=== PATIENT | male | born 1965 | race American Indian/Alaskan Native ===

== ENCOUNTER 2017-02-03 20:42 | Inpatient (IN) | payer OTHER ==
[2017-02-03] MEDS ORDERED: APRESOLINE IV ONE (21:10)
[2017-02-03] MEDS ORDERED: NACL 0.9% 1000 ML 1,000 ML IV ONE (21:10)
[2017-02-03] MEDS ORDERED: ZOFRAN IV ONE (21:10)
[2017-02-03] MEDS ORDERED: MORPHINE IV ONE (21:10)
--- NOTE | 2017-02-03 21:11 | Emergency Department Report ---
ED Abdominal Pain HPI - General Chief Complaint: Abdominal Pain Stated Complaint: ABDOMINAL PAIN, POSS BOWEL OBSTRUCTION Time Seen by Provider: 02/03/17 21:05 Source: EMS, RN notes reviewed Mode of arrival: Stretcher Limitations: No Limitations - History of Present Illness Initial Comments: This is a 51-year-old male. He is previously unknown to me. He does not have a primary care doctor. He denies chronic medical conditions. He denies previous history of abdominal surgeries. Reports a history of known chronic umbilical hernia. Brought to the hospital by EMS for possible bowel obstruction. Patient reports not having had a bowel movement for 4-5 days. Positive nausea and vomiting. Decreased stool, decreased Yoselin, positive increased abdominal girth. No fevers or chills. No chest pain or shortness of breath. No testicular pain. No irritative or obstructive urinary symptoms. Symptoms constant, they have no relieving factors. Of note, at the end of my interview, patient asked to drink. MD Complaint: abdominal pain -: Gradual, days(s) Location: diffuse Severity: mild Severity scale (0 -10): 8 Quality: cramping Improves With: nothing Worsens With: nothing Associated Symptoms: nausea, vomiting, constipation - Related Data Allergies Allergy/AdvReac Type Severity Reaction Status Date / Time peanut AdvReac Severe Swelling Verified 02/04/17 13:31 ED Review of Systems ROS: Stated complaint: ABDOMINAL PAIN, POSS BOWEL OBSTRUCTION Other details as noted in HPI Constitutional: denies: fever Eyes: denies: vision change ENT: denies: epistaxis Respiratory: denies: cough Cardiovascular: denies: chest pain Gastrointestinal: abdominal pain, nausea, vomiting, constipation Genitourinary: denies: urgency, dysuria Musculoskeletal: denies: back pain Neurological: denies: as per HPI, weakness Psychiatric: denies: anxiety ED Past Medical Hx - Past Medical History Previous Medical History?: Yes Hx Hypertension: No Hx CVA: No Hx Heart Attack/AMI: No Hx Congestive Heart Failure: No Hx Diabetes: No Hx Deep Vein Thrombosis: No Hx Pulmonary Embolism: No Hx GERD: No Hx Liver Disease: No Hx Renal Disease: No Hx of Cancer: No Hx Sickle Cell Disease: No Hx Arthritis: No Hx Headaches / Migraines: No Hx Seizures: No Hx Psychiatric Treatment: No Hx Asthma: No Hx COPD: No Hx Tuberculosis: No Hx Dementia: No Hx HIV: No - Surgical History Past Surgical History?: No Hx Coronary Stent: No Hx Open Heart Surgery: No Hx Pacemaker: No Hx Internal Defibrillator: No Hx Cholecystectomy: No Hx Appendectomy: No Hx Breast Surgery: No - Social History Smoking Status: Current Every Day Smoker Substance Use Type: Alcohol ED Physical Exam - General Limitations: No Limitations General appearance: alert, in no apparent distress, obese - Head Head exam: Present: atraumatic, normocephalic - Eye Eye exam: Present: normal appearance, EOMI. Absent: nystagmus - ENT ENT exam: Present: normal exam, normal orophraynx, mucous membranes moist, normal external ear exam - Neck Neck exam: Present: normal inspection, full ROM. Absent: tenderness, meningismus - Respiratory Respiratory exam: Present: normal lung sounds bilaterally. Absent: respiratory distress, wheezes, rales, rhonchi, stridor, prolonged expiratory - Cardiovascular Cardiovascular Exam: Present: regular rate, normal rhythm, normal heart sounds. Absent: bradycardia, tachycardia, irregular rhythm, systolic murmur, diastolic murmur, rubs, gallop - GI/Abdominal GI/Abdominal exam: Present: soft, tenderness (mild diffuse tenderness. No rebound, guarding or peritoneal signs.), normal bowel sounds, hernia (there are 2 small umbilical hernias both of which are reducible. There is a small aspect of umbilical hernia that is leaking serous fluid. Nontender.), other. Absent: distended, guarding, rebound, rigid - Rectal Rectal exam: Present: deferred - Extremities Exam Extremities exam: Present: normal inspection, full ROM, normal capillary refill. Absent: tenderness, pedal edema, joint swelling, calf tenderness - Back Exam Back exam: Present: normal inspection, full ROM. Absent: tenderness, CVA tenderness (R), CVA tenderness (L), muscle spasm, paraspinal tenderness, vertebral tenderness - Neurological Exam Neurological exam: Present: alert, oriented X3, normal gait, other (Extraocular movements intact. Tongue midline. No facial droop. Facial sensation intact to light touch in the V1, V2, V3 distribution bilaterally. 5 and 5 strength in 4 extremities.. Sensation is intact to light touch in 4 extremities.). Absent : motor sensory deficit - Psychiatric Psychiatric exam: Present: normal affect, normal mood - Skin Skin exam: Present: warm, dry, intact, normal color. Absent: rash ED Course Vital Signs 03/20/17 03/20/17 03/21/17 20:55 22:26 00:00 Temperature 98.6 F Respiratory 17 17 2 L Rate Blood Pressure 206/98 Blood Pressure 138/74 [Left] O2 Sat by Pulse 99 99 Oximetry - Reevaluation(s) Reevaluation #1: 02/03/17 21:14 Differential diagnosis: Constipation, obstruction, ileus, hypertension, incidental elevated blood pressure Assessment and plan: 51-year-old male with complaint of abdominal pain, nausea vomiting distention. Afebrile, somewhat hypertensive. Appears quite comfortable. We will obtain basic laboratory studies, CT scan, reassess. Hypertension appreciated, we will treat him with hydralazine. 02/03/17 23:24 Reevaluation #2: 02/03/17 23:24 Blood pressure is improved. CT scan demonstrates high-grade small bowel obstruction, ventral hernia defect containing the cecum and ileocecal junction, with incarceration of the bowel, pneumatosis suggesting possible ischemic injury. Afebrile, lactic acid within normal limits. Patient reports that he is feeling comfortable. Nasogastric tube is ordered. Care is discussed with the general surgeon, Dr. Osorio, who accepts patient to his service. Aortic findings incidental, most likely asymptomatic given clinical picture. 02/03/17 23:25 ED Medical Decision Making - Lab Data Result diagrams: 02/06/17 15:17 02/07/17 15:09 Vital Signs 02/03/17 20:55 Temperature 98.6 F Respiratory 17 Rate Blood Pressure 206/98 O2 Sat by Pulse 99 Oximetry Vital Signs 02/03/17 02/03/17 20:55 22:26 Temperature 98.6 F Respiratory 17 17 Rate Blood Pressure 206/98 Blood Pressure 138/74 [Left] O2 Sat by Pulse 99 99 Oximetry Lab Results 02/03/17 02/03/17 02/03/17 Range/Units 21:14 21:14 21:14 WBC 12.7 H (4.5-11.0) K/mm3 RBC 5.64 H (3.65-5.03) M/mm3 Hgb 17.2 H (11.8-15.2) gm/dl Hct 52.0 H (35.5-45.6) % MCV 92 (84-94) fl MCH 31 (28-32) pg MCHC 33 (32-34) % RDW 12.8 L (13.2-15.2) % Plt Count 185 (140-440) K/mm3 Sodium 138 (137-145) mmol/L Potassium 4.1 (3.6-5.0) mmol/L Chloride 96.7 L (98-107) mmol/L Carbon Dioxide 28 (22-30) mmol/L Anion Gap 17 mmol/L BUN 18 (9-20) mg/dL Creatinine 0.9 (0.8-1.5) mg/dL Estimated GFR > 60 ml/min BUN/Creatinine Ratio 20.00 % Glucose 138 H (75-100) mg/dL Lactic Acid 1.6 (0.7-2.0) mmol/L Calcium 9.3 (8.4-10.2) mg/dL Total Bilirubin 0.9 (0.1-1.2) mg/dL AST 11 (5-40) units/L ALT 13 (7-56) units/L Alkaline Phosphatase 57 (35-129) units/L Total Protein 7.5 (6.3-8.2) g/dL Albumin 3.7 L (3.9-5) g/dL Albumin/Globulin Ratio 1.0 % - Radiology Data Radiology results: report reviewed, image reviewed CT scan demonstrates high-grade small bowel obstruction, aneurysmal dilatation of the abdominal aorta measuring 4.5 cm, incarceration of the bowel and herniation of the cecum. Critical care attestation.: If time is entered above; I have spent that time in minutes in the direct care of this critically ill patient, excluding procedure time. ED Disposition Clinical Impression: SBO (small bowel obstruction) Disposition: OP ADMITTED IP TO THIS HOSP Is pt being admited?: Yes Condition: Good
[2017-02-03 22:03] LABS: Hemoglobin 17.2 gm/dl (11.8-15.2); Mean Corpuscular HGB Conc 33 % (32-34); Mean Corpuscular Hemoglobin 31 pg (28-32); Mean Corpuscular Volume 92 fl (84-94); Platelet Count 185 K/mm3 (140-440); Red Blood Count 5.64 M/mm3 (3.65-5.03); Red Cell Distribution Width 12.8 % (13.2-15.2); White Blood Count 12.7 K/mm3 (4.5-11.0)
[2017-02-03 22:13] LABS: INR 1.15 (0.87-1.13)
[2017-02-03 22:14] LABS: Alanine Aminotransferase 13 units/L (7-56); Albumin 3.7 g/dL (3.9-5); Alkaline Phosphatase 57 units/L (35-129); Anion Gap 17 mmol/L; Bilirubin,Total 0.9 mg/dL (0.1-1.2); Blood Urea Nitrogen 18 mg/dL (9-20); Calcium 9.3 mg/dL (8.4-10.2); Carbon Dioxide 28 mmol/L (22-30); Chloride 96.7 mmol/L (98-107); Glucose 138 mg/dL (75-100); Potassium 4.1 mmol/L (3.6-5.0); Sodium 138 mmol/L (137-145); Total Protein 7.5 g/dL (6.3-8.2)
[2017-02-03 22:39] LABS: Anion Gap 19 mmol/L; BUN/Creatinine Ratio 21.11; Blood Urea Nitrogen 19 mg/dL (9-20); Calcium 9.5 mg/dL (8.4-10.2); Carbon Dioxide 27 mmol/L (22-30); Chloride 98.1 mmol/L (98-107); Glucose 133 mg/dL (75-100); Potassium 4.2 mmol/L (3.6-5.0); Sodium 140 mmol/L (137-145)
[2017-02-03] MEDS ORDERED: NACL ONE (22:53)
--- NOTE | 2017-02-03 23:08 | Cat Scan Report ---
FINAL REPORT PROCEDURE: CT ABDOMEN PELVIS W CON TECHNIQUE: Computerized axial tomography of the abdomen and pelvis was performed after the IV injection of iodinated nonionic contrast. HISTORY: rlq pain, IV and oral contrast COMPARISON: No prior studies are available for comparison. FINDINGS: Visualized lower thorax: No significant abnormality. Liver: Normal size and attenuation. Spleen: Normal size and attenuation. Gallbladder and biliary system: Normal. Pancreas: Normal. Adrenals: Normal. Kidneys: Normal. GI tract: There is a ventral hernia defect containing the cecum and ileal cecal junction. There is incarceration of the bowel at this location and the herniated portion of the cecum demonstrates pneumatosis suggesting possible ischemic injury. There is a high-grade mechanical small bowel obstruction with significant distension of the small bowel. The stomach is likewise distended.. Lymph nodes and mesentery: Normal. Vasculature: There is aneurysmal dilatation of the abdominal aorta measuring up to 4.7 centimeters in diameter and 8.3 centimeters in length. There is calcified and soft plaque. There is no dissection or thrombosis. Visceral branches are patent.. Bladder: Normal. Reproductive organs: Normal. Peritoneum: There is minimal ascites. There is no free air. There is no abscess.. Musculoskeletal structures: No significant abnormality. Other: None. IMPRESSION: There is a ventral hernia defect containing the cecum and ileal cecal junction. There is incarceration of the bowel at this location and the herniated portion of the cecum demonstrates pneumatosis suggesting possible ischemic injury. There is a high-grade mechanical small bowel obstruction with significant distension of the small bowel. There is aneurysmal dilatation of the abdominal aorta measuring up to 4.7 centimeters in diameter and 8.3 centimeters in length. There is calcified and soft plaque. There is no dissection or thrombosis. Visceral branches are patent.. There is minimal ascites. There is no free air. There is no abscess..
[2017-02-03] MEDS ORDERED: ZOSYN/NS 4.5GM/100ML 4.5 GM/100 ML VIAL IV ONE (23:14)
[2017-02-03] MEDS ORDERED: LIDOCAINE VISCOUS 2% PO ONE (23:17)
[2017-02-03] MEDS ORDERED: XYLOCAINE TOPICAL 4% TP ONE (23:17)
[2017-02-03] MEDS ORDERED: NACL 0.9% 1000 ML 1,000 ML IV SCH (23:30)
[2017-02-03] MEDS ORDERED: NACL 0.9% IV SCH (23:45)
[2017-02-04] MEDS ORDERED: ZOSYN/NS 4.5GM/100ML 4.5 GM/100 ML VIAL IV ONE (00:22)
[2017-02-04] MEDS: ZOFRAN IV PRN (01:37)
[2017-02-04] MEDS: MORPHINE IV PRN (01:37)
[2017-02-04] MEDS: FLAGYL 500 MG/100 ML 500 MG/100 ML BAG IV SCH ×4 (01:38→19:15)
--- NOTE | 2017-02-04 08:08 | Admit Criteria Form ---
Admission Criteria Documentation: INTESTINAL OBSTRUCTION Clinical Indications for Admission to Inpatient Care (Place 'X' for any and all applicable criteria): Admission is indicated for ANY ONE of the following (1)(2)(3)(4)(5): [ ]I. Partial bowel obstruction [X]II. Complete bowel obstruction Extended stay beyond goal length of stay may be needed for(1)(4)(12(: [ ]a) Identified etiology (eg, hernia, volvulus, cancer with obstruction) requiring intervention [ ]b) Gallstone ileus [ ]c) Surgical intervention [ ]d) Acute comorbid illness (eg, electrolyte imbalance, hypovolemia, renal failure) The original [employer] content created by [employer] has been revised. The portions of the content which have been revised are identified through the use of italic text or in bold, and [facility] has neither reviewed nor approved the modified material. All other unmodified content is copyright [employer]. Please see references footnoted in the original [employer] edition 2016 Admission Criteria Met: Yes
[2017-02-04] MEDS ORDERED: NACL 0.9% 1000 ML 1,000 ML IV SCH ×2 (09:30→14:00)
[2017-02-04] MEDS ORDERED: NEOSTIGMINE ONE (12:15)
--- NOTE | 2017-02-04 13:01 | Anesthesia Consultation ---
Anesthesia Consult and Med Hx Date of service: 02/04/17 - Airway Anesthetic Teeth Evaluation: Poor ROM Head & Neck: Adequate Mental/Hyoid Distance: Adequate Mallampati Class: Class II Intubation Access Assessment: Probably Good - Pulmonary Exam CTA: Yes - Cardiac Exam Cardiac Exam: RRR - Pre-Operative Health Status ASA Pre-Surgery Classification: ASA2 Proposed Anesthetic Plan: General - Pulmonary Hx Asthma: No COPD: No Hx Pneumonia: No - Cardiovascular System Hx Hypertension: No Hx Heart Attack/AMI: No Hx Pacemaker: No Hx Internal Defibrillator: No - Central Nervous System Hx Seizures: No - Endocrine Hx Renal Disease: No Hx Liver Disease: No - Hematic Hx Sickle Cell Disease: No
--- NOTE | 2017-02-04 13:02 | Anesthesia Day of Surgery ---
Anesthesia Day of Surgery - Day of Surgery Patient Examined: Yes Patient H&P Reviewed: Yes Patient is NPO: Yes
[2017-02-04] MEDS ORDERED: DILAUDID ONE ×3 (13:51→17:15)
[2017-02-04] MEDS ORDERED: DECADRON ONE ×2 (13:51→16:16)
[2017-02-04] MEDS ORDERED: XYLOCAINE MPF 2% ONE (13:51)
[2017-02-04] MEDS ORDERED: DIPRIVAN 10 MG/ML IV ONE (13:51)
[2017-02-04] MEDS ORDERED: ZEMURON IV ONE (13:51)
[2017-02-04] MEDS ORDERED: ZOFRAN ONE (13:51)
[2017-02-04] MEDS ORDERED: DILAUDID IV PRN (13:57)
[2017-02-04] MEDS ORDERED: ZOFRAN IV PRN (13:57)
[2017-02-04] MEDS ORDERED: PEPCID IV NR (14:00)
[2017-02-04] MEDS ORDERED: VERSED ONE ×3 (14:50→18:07)
[2017-02-04] MEDS ORDERED: NACL 0.9% IR ONE (15:50)
[2017-02-04] MEDS ORDERED: NACL 0.9% 1000 ML 1,000 ML ONE ×4 (16:07→16:44)
[2017-02-04] MEDS ORDERED: NORMODYNE IV ONE (16:17)
[2017-02-04] MEDS ORDERED: NEO SYNEPHRINE ONE (16:32)
[2017-02-04] MEDS ORDERED: NACL 0.9% 100 ML ONE (16:32)
[2017-02-04] MEDS ORDERED: ROBINUL ONE ×3 (16:32→16:44)
[2017-02-04] MEDS ORDERED: VERSED IV ONE (18:13)
--- NOTE | 2017-02-04 18:15 | Post Anesthesia Evaluation ---
- Post Anesthesia Evaluation Patient Participated: Yes Airway Patent: Yes Stable Respiratory Function: Yes Nausea/Vomiting: No Temp > 96.8F: Yes Pain Manageable: Yes Adequeate Hydration: Yes Anesthesia Complications: No Block Receding Appropriately: Not Applicable Patient on Ventilator: No
--- NOTE | 2017-02-04 20:58 | Progress Note ---
Objective Vital Signs - 12hr 02/04/17 02/04/17 02/04/17 12:26 13:39 17:45 Temperature 98.9 F 99.2 F 99.3 F Pulse Rate 96 H 78 Pulse Rate [ Right Brachial] Respiratory 20 22 14 Rate Blood Pressure 206/98 154/86 151/88 Blood Pressure [Right Arm] O2 Sat by Pulse 97 94 98 Oximetry 02/04/17 20:19 Temperature 99.0 F Pulse Rate Pulse Rate [ 75 Right Brachial] Respiratory 24 Rate Blood Pressure Blood Pressure 145/81 [Right Arm] O2 Sat by Pulse 94 Oximetry - Labs 02/03/17 21:14 02/03/17 21:14
[2017-02-04] MEDS: ZOSYN/NS 4.5GM/100ML 4.5 GM/100 ML VIAL IV SCH (23:00)
--- NOTE | 2017-02-05 00:58 | Operative Report ---
PREOPERATIVE DIAGNOSIS: Umbilical hernia, incarcerated. POSTOPERATIVE DIAGNOSES: Small bowel segment of strangulation and gangrene, well localized into the area. ANESTHESIA: General. BLOOD LOSS: Minimal. FINDINGS: The patient had a loop of small intestine just proximal to the ileocecal valve by about 25 cm, stuck into the hernial sac. The sac is about 4 x 4 cm and the contents of the sac showed that segment that showed gangrene. There was no leakage or any perforation. I was able to go on both sides in the usual fashion resecting that segment, which was about 50 cm with end-to-end anastomosis using for that purpose the SHAQ 75. Anesthesia was general. Rest of the examination did not reveal anything specific. I was able to introduce #18 NG tube into the gastric pouch where we got a fairly good amount of fluid from the stomach, amounted to about 400 mL. So, the stomach was decompressed as well as the small intestines with use of the pool suction. DESCRIPTION OF PROCEDURE: With the patient in supine position, prepped and draped in usual fashion. I made a midline incision from above the umbilicus where the mass is to below it for a good 10 cm each. Deep subcutaneous tissue all the way down to fascia was incised. I was able to isolate the peritoneum, so the hernia sac was there with its contents of gangrenous loop of small intestine that was barely about 10 cm. I was able to isolate that immediately and transecting it in the usual fashion after decompressing the small intestines in the usual fashion. Then, the anastomosis was performed using the SHAQ-75 for that purpose end-to-end and then I used a TA 60 to close the stump. Then, this was reinforced with interrupted stitches of 3-0 Vicryl. I was well satisfied with good hemostasis, then the abdominal cavity was irrigated thoroughly with normal saline. The NG tube could be felt easily into the gastric pouch attached to suction. I was well satisfied. Then, the wound was closed in 1 layer, used for that purpose #1 Vicryl interruptedly for the fascia through and through. After removing of the skin that shows evidence of an ulcer there. Then, these tissues were reinforced with 3 retention sutures using for that purpose #5 Ethibond with rubber-shod. I was well satisfied. I did close the skin with graham, leaving some spaces and then I was able to introduce ____ with Betadine. Bandages were then applied, then an abdominal binder, we left the Hanna in. The patient was then transferred to the recovery room in good condition. JOB# [id number] NABEEL/GAMAL
[2017-02-05] MEDS: FLAGYL 500 MG/100 ML 500 MG/100 ML BAG IV SCH ×4 (01:25→17:30)
[2017-02-05] MEDS: MORPHINE IV PRN ×4 (02:35→23:44)
[2017-02-05] MEDS: ZOSYN/NS 4.5GM/100ML 4.5 GM/100 ML VIAL IV SCH ×3 (05:40→22:37)
[2017-02-05] MEDS ORDERED: PEPCID IV NR (06:00)
[2017-02-05 07:17] LABS: Anion Gap 18 mmol/L; BUN/Creatinine Ratio 18.88; Blood Urea Nitrogen 17 mg/dL (9-20); Calcium 7.8 mg/dL (8.4-10.2); Carbon Dioxide 24 mmol/L (22-30); Chloride 109.8 mmol/L (98-107); Glucose 151 mg/dL (75-100); Potassium 4.4 mmol/L (3.6-5.0); Sodium 147 mmol/L (137-145)
[2017-02-05 08:37] LABS: Hematocrit 41.7 % (35.5-45.6); Mean Corpuscular HGB Conc 34 % (32-34); Mean Corpuscular Hemoglobin 31 pg (28-32); Mean Corpuscular Volume 92 fl (84-94); Platelet Count 162 K/mm3 (140-440); Red Blood Count 4.54 M/mm3 (3.65-5.03); White Blood Count 6.1 K/mm3 (4.5-11.0)
[2017-02-05 09:21] LABS: Basophils % (Manual) 0 % (0.0-1.8); Blastocytes % (Manual) 0 %; Eosinophils % (Manual) 0 % (0.0-4.3)
[2017-02-05 09:22] LABS: Anisocytosis 1+; Diff Status Complete; Giant Platelets Rare; Platelet Estimate Cons
--- NOTE | 2017-02-05 10:58 | Progress Note ---
Subjective Patient Reports: Positive: no flatus Narrative: Pt puuled NG last nite , talked to him as to the imprtance of NG suction , accepted . will re insert . Objective Vital Signs - 12hr 02/05/17 02/05/17 02/05/17 00:00 04:00 08:00 Temperature 99.1 F 99.3 F 99.4 F Pulse Rate [ 86 73 64 Right Brachial] Respiratory 24 20 18 Rate Blood Pressure 135/76 134/71 147/75 [Right Arm] O2 Sat by Pulse 94 96 97 Oximetry - Labs 02/05/17 07:44 02/05/17 06:27 Diabetes panel 02/05/17 Range/Units 06:27 Sodium 147 H D (137-145) mmol/L Potassium 4.4 (3.6-5.0) mmol/L Chloride 109.8 H (98-107) mmol/L Carbon Dioxide 24 (22-30) mmol/L BUN 17 (9-20) mg/dL Creatinine 0.9 (0.8-1.5) mg/dL Glucose 151 H (75-100) mg/dL Calcium 7.8 L D (8.4-10.2) mg/dL Calcium panel 02/05/17 Range/Units 06:27 Calcium 7.8 L D (8.4-10.2) mg/dL Pituitary panel 02/05/17 Range/Units 06:27 Sodium 147 H D (137-145) mmol/L Potassium 4.4 (3.6-5.0) mmol/L Chloride 109.8 H (98-107) mmol/L Carbon Dioxide 24 (22-30) mmol/L BUN 17 (9-20) mg/dL Creatinine 0.9 (0.8-1.5) mg/dL Glucose 151 H (75-100) mg/dL Calcium 7.8 L D (8.4-10.2) mg/dL Adrenal panel 02/05/17 Range/Units 06:27 Sodium 147 H D (137-145) mmol/L Potassium 4.4 (3.6-5.0) mmol/L Chloride 109.8 H (98-107) mmol/L Carbon Dioxide 24 (22-30) mmol/L BUN 17 (9-20) mg/dL Creatinine 0.9 (0.8-1.5) mg/dL Glucose 151 H (75-100) mg/dL Calcium 7.8 L D (8.4-10.2) mg/dL
[2017-02-05] MEDS ORDERED: XYLOCAINE TOPICAL 4% TP ONE (11:00)
[2017-02-05] MEDS ORDERED: LIDOCAINE VISCOUS 2% PO ONE (13:00)
[2017-02-05] MEDS ORDERED: D5W/0.45% NACL/KCL 20 MEQ 20 MEQ/1,000 ML BAG IV SCH (14:00)
[2017-02-05] MEDS: ZOFRAN IV PRN (23:44)
[2017-02-06] MEDS: FLAGYL 500 MG/100 ML 500 MG/100 ML BAG IV SCH ×2 (01:39→06:16)
[2017-02-06] MEDS: ZOSYN/NS 4.5GM/100ML 4.5 GM/100 ML VIAL IV SCH ×3 (06:17→22:39)
[2017-02-06] MEDS: MORPHINE IV PRN ×3 (10:55→22:39)
--- NOTE | 2017-02-06 15:00 | Progress Note ---
Subjective Patient Reports: Positive: still having pain, no flatus, no bowel movement Narrative: doing OK , abd distended ng in ,1000cc in 8 hours , ill keep NPO . Objective Vital Signs - 12hr 02/06/17 02/06/17 02/06/17 04:35 08:05 12:20 Temperature 98.7 F 97.5 F L 99.4 F Pulse Rate [ 75 80 95 H Right Brachial] Respiratory 20 20 18 Rate Blood Pressure 166/86 162/91 151/88 [Right Arm] O2 Sat by Pulse 97 93 Oximetry - Labs 02/05/17 07:44 02/05/17 06:27
[2017-02-06 15:37] LABS: Hematocrit 44.2 % (35.5-45.6); Hemoglobin 14.3 gm/dl (11.8-15.2); Mean Corpuscular HGB Conc 32 % (32-34); Mean Corpuscular Hemoglobin 30 pg (28-32); Mean Corpuscular Volume 93 fl (84-94); Platelet Count 197 K/mm3 (140-440); Red Blood Count 4.76 M/mm3 (3.65-5.03); White Blood Count 5.3 K/mm3 (4.5-11.0)
[2017-02-06 16:18] LABS: Basophils % (Manual) 0 % (0.0-1.8); Blastocytes % (Manual) 0 %; Eosinophils % (Manual) 0 % (0.0-4.3)
[2017-02-06 16:19] LABS: Anisocytosis 1+; Diff Status Complete; Platelet Estimate Consistent w Auto
[2017-02-06] MEDS: ZOFRAN IV PRN (22:39)
--- NOTE | 2017-02-07 05:10 | XRay Report ---
FINAL REPORT PROCEDURE: XR ABDOMEN 1V AP TECHNIQUE: Abdominal radiograph, single supine AP view. HISTORY: post op COMPARISON: No prior studies are available for comparison. FINDINGS: Bowel gas pattern:There are distended loops of small bowel suggesting an adynamic ileus. There is no bowel wall thickening.. Masses or calcifications:None. Bony structures:No significant abnormality. Other:There is no free air. There is an NG tube in the stomach.. IMPRESSION: There are distended loops of small bowel suggesting an adynamic ileus. There is no bowel wall thickening.. There is no free air. There is an NG tube in the stomach..
[2017-02-07] MEDS: ZOSYN/NS 4.5GM/100ML 4.5 GM/100 ML VIAL IV SCH ×3 (06:04→23:11)
[2017-02-07] MEDS: FLAGYL 500 MG/100 ML 500 MG/100 ML BAG IV SCH (08:06)
[2017-02-07] MEDS ORDERED: MILK OF MAGNESIA PO ONE ×2 (11:16→14:00)
--- NOTE | 2017-02-07 11:21 | Progress Note ---
Subjective Patient Reports: Positive: flatus Narrative: still abd distension , Pt pulled NG out although was warned againt it , will samantha NPO . Objective Vital Signs - 12hr 02/07/17 08:00 Temperature 98.7 F Pulse Rate [ 87 Right Brachial] Respiratory 18 Rate Blood Pressure 149/85 [Right Arm] O2 Sat by Pulse 96 Oximetry - Labs 02/06/17 15:17 02/05/17 06:27
--- NOTE | 2017-02-07 14:01 | Consultation ---
History of Present Illness - Reason for Consult Consult date: 02/07/17 Abdominal Aortic Aneurysm Requesting physician: [facility] - History of Present Illness This patient is a 51-year-old male that was admitted via the emergency room on 02/05/2017 with a 5 day history of abdominal pain with distention. He was evaluated by the general surgeon, and subsequently admitted with a small bowel obstruction. He had a CT scan of the abdomen which revealed a ventral hernia defect containing the cecum and the ileocecal junction. This appeared to be incarcerated. The patient was subsequently taken to the operating room by his surgeon. The CT scan showed a 4.7 cm the abdominal aorta. A vascular surgery consult is requested to further evaluate. Past History Past Medical History: No medical history (patient denies any chronic medical conditions. He denies taking medications at home.) Past Surgical History: No surgical history Social history: other (the patient is currently incarcerated and is reportedly to be released in March) Family history: denies: no significant family history Medications and Allergies Allergies Allergy/AdvReac Type Severity Reaction Status Date / Time peanut AdvReac Severe Swelling Verified 02/04/17 13:31 Active Meds: Active Medications Piperacillin Sod/Tazobactam Sod (Zosyn/Ns 4.5gm/100ml) 4.5 gm in 100 mls @ 200 mls/hr IV Q8HR MCKINLEY PRN Reason: Protocol Last Admin: 02/07/17 06:04 Dose: 200 mls/hr Potassium Chloride/Dextrose/Sod Cl (D5w/0.45% Nacl/Kcl 20 Meq) 20 meq in 1,000 mls @ 125 mls/hr IV DIRECT MCKINLEY Last Admin: 02/05/17 13:54 Dose: 125 mls/hr Magnesium Hydroxide (Milk Of Magnesia) 60 ml PO Q4H ONE Stop: 02/07/17 14:01 Morphine Sulfate (Morphine) 4 mg IV Q4HR PRN PRN Reason: Pain Last Admin: 02/06/17 22:39 Dose: 4 mg Ondansetron HCl (Zofran) 4 mg IV Q6HR PRN PRN Reason: Nausea Last Admin: 02/06/17 22:39 Dose: 4 mg Review of Systems All systems: negative Exam - Constitutional Vitals: Temp Pulse Resp BP Pulse Ox 98.7 F 87 18 149/85 96 02/07/17 08:00 02/07/17 08:00 02/07/17 08:00 02/07/17 08:00 02/07/17 08:00 General appearance: Present: no acute distress - EENT Eyes: Present: EOM intact ENT: hearing intact - Neck Neck: Present: supple - Respiratory Respiratory effort: normal - Extremities Extremities: no ischemia, pulses intact (pedal pulses intact bilaterally), normal temperature - Psychiatric Psychiatric: appropriate mood/affect, intact judgment & insight, cooperative - Neurologic Neurologic: no focal deficits Results - Labs CBC & Chem 7: 02/06/17 15:17 02/05/17 06:27 Labs: Abnormal lab results 02/06/17 Range/Units 15:17 RDW 13.0 L (13.2-15.2) % Monocytes % (Manual) 17.0 H (0.0-7.3) % Lymphocytes # (Manual) 0.9 L (1.2-5.4) K/mm3 Monocytes # (Manual) 0.9 H (0.0-0.8) K/mm3 Assessment and Plan Patient is a 4.7 cm abdominal aortic aneurysm without rupture. It does not appear to be symptomatic, nor does not require surgical intervention at present. He can follow with us as an outpatient for routine monitoring. Patient states that [facility], and I recommended he get a copy of his CT scan and notify his primary care provider of the aneurysm. - Patient Problems (1) Aortic aneurysm without rupture Current Visit: Yes Status: Acute Qualifiers: Aortic location: A (2) SBO (small bowel obstruction) Current Visit: Yes Status: Acute
[2017-02-07 15:39] LABS: BUN/Creatinine Ratio 16.36; Blood Urea Nitrogen 18 mg/dL (9-20); Calcium 8.9 mg/dL (8.4-10.2); Carbon Dioxide 32 mmol/L (22-30); Chloride 107.9 mmol/L (98-107); Glucose 121 mg/dL (75-100); Potassium 3.7 mmol/L (3.6-5.0); Sodium 151 mmol/L (137-145)
[2017-02-07 15:47] LABS: Anion Gap 15 mmol/L
[2017-02-07] MEDS: MORPHINE IV PRN (18:51)
--- NOTE | 2017-02-08 09:53 | XRay Report ---
Flat plate Abdomen: Compared to 02/07/17. History: Distended abdomen. Findings: Multiple distended loops of small bowel are again identified without significant interval change. No definite air is seen in the descending colon and rectum however minimal air is noted in the ascending colon. Impression: No significant interval change.
[2017-02-08 10:48] LABS: Hematocrit 43.8 % (35.5-45.6); Hemoglobin 14.5 gm/dl (11.8-15.2); Mean Corpuscular HGB Conc 33 % (32-34); Mean Corpuscular Hemoglobin 31 pg (28-32); Mean Corpuscular Volume 92 fl (84-94); Platelet Count 237 K/mm3 (140-440); Red Blood Count 4.77 M/mm3 (3.65-5.03); Red Cell Distribution Width 12.9 % (13.2-15.2); White Blood Count 7.8 K/mm3 (4.5-11.0)
[2017-02-08 10:52] LABS: Anion Gap 15 mmol/L; BUN/Creatinine Ratio 27.27; Blood Urea Nitrogen 30 mg/dL (9-20); Calcium 8.9 mg/dL (8.4-10.2); Carbon Dioxide 36 mmol/L (22-30); Chloride 101.6 mmol/L (98-107); Glucose 142 mg/dL (75-100); Potassium 3.7 mmol/L (3.6-5.0); Sodium 149 mmol/L (137-145)
[2017-02-08 11:30] LABS: Anisocytosis 1+; Basophils % (Manual) 0 % (0.0-1.8); Blastocytes % (Manual) 0 %; Diff Status Complete; Eosinophils % (Manual) 0 % (0.0-4.3); Stomatocytes 1+
--- NOTE | 2017-02-08 13:57 | Progress Note ---
Subjective Narrative: Pt pulled NG again , vomited twice tis AM , abd distendd low B sounds .NG reinserted will check placemen . Vascular seen Pt for the AAA Objective Vital Signs - 12hr 02/08/17 07:00 Temperature 98.8 F Pulse Rate [ 76 Right Brachial] Respiratory 18 Rate Blood Pressure 151/96 [Right Arm] O2 Sat by Pulse 94 Oximetry - Labs 02/08/17 09:59 02/08/17 09:59 Diabetes panel 02/07/17 02/08/17 Range/Units 15:09 09:59 Sodium 151 H 149 H (137-145) mmol/L Potassium 3.7 3.7 (3.6-5.0) mmol/L Chloride 107.9 H 101.6 (98-107) mmol/L Carbon Dioxide 32 H D 36 H (22-30) mmol/L BUN 18 30 H (9-20) mg/dL Creatinine 1.1 1.1 (0.8-1.5) mg/dL Glucose 121 H 142 H (75-100) mg/dL Calcium 8.9 8.9 (8.4-10.2) mg/dL Calcium panel 02/07/17 02/08/17 Range/Units 15:09 09:59 Calcium 8.9 8.9 (8.4-10.2) mg/dL Pituitary panel 02/07/17 02/08/17 Range/Units 15:09 09:59 Sodium 151 H 149 H (137-145) mmol/L Potassium 3.7 3.7 (3.6-5.0) mmol/L Chloride 107.9 H 101.6 (98-107) mmol/L Carbon Dioxide 32 H D 36 H (22-30) mmol/L BUN 18 30 H (9-20) mg/dL Creatinine 1.1 1.1 (0.8-1.5) mg/dL Glucose 121 H 142 H (75-100) mg/dL Calcium 8.9 8.9 (8.4-10.2) mg/dL Adrenal panel 02/07/17 02/08/17 Range/Units 15:09 09:59 Sodium 151 H 149 H (137-145) mmol/L Potassium 3.7 3.7 (3.6-5.0) mmol/L Chloride 107.9 H 101.6 (98-107) mmol/L Carbon Dioxide 32 H D 36 H (22-30) mmol/L BUN 18 30 H (9-20) mg/dL Creatinine 1.1 1.1 (0.8-1.5) mg/dL Glucose 121 H 142 H (75-100) mg/dL Calcium 8.9 8.9 (8.4-10.2) mg/dL
[2017-02-08] MEDS ORDERED: D5W/0.45% NACL/KCL 20 MEQ 20 MEQ/1,000 ML BAG IV SCH (14:00)
--- NOTE | 2017-02-08 14:59 | XRay Report ---
FINAL REPORT PROCEDURE: Portable AP abdomen TECHNIQUE: AP supine portable radiograph of the abdomen was obtained at 02/08/2017 17:58 (GMT) . HISTORY: NGT placement/SMALL BOWELL OBSTRUCTION COMPARISON: Prior study 02/07/2017 FINDINGS: NG tube is seen directed into the left side of the stomach. Midline skin graham project over the lower abdomen and pelvis there are multiple gas distended loops of small bowel seen in the mid abdomen and gasless pelvis. The appearance suggest small bowel obstruction. No abnormal masses or calcifications are seen. IMPRESSION: NG tube in good position. Small bowel obstruction. Postsurgical changes are present.
[2017-02-08] MEDS: ZOSYN/NS 4.5GM/100ML 4.5 GM/100 ML VIAL IV SCH ×3 (18:00→22:00)
[2017-02-08] MEDS ORDERED: CLINIMIX 4.25%-5% SOLUTION 2,000 ML IV SCH (20:00)
[2017-02-09] MEDS: ZOSYN/NS 4.5GM/100ML 4.5 GM/100 ML VIAL IV SCH ×3 (07:38→21:19)
--- NOTE | 2017-02-09 13:51 | XRay Report ---
KUB: 02/09/17 09:48:00 CLINICAL: Postop abdominal pain. COMPARISON: 02/08/17 FINDINGS: The proximal small bowel is distended and there is slightly greater distention than on the prior exam. The nasogastric tube tip has advanced and is in the second portion of the duodenum. No definite colon gas. No pneumoperitoneum. Midline lower abdominal skin graham. IMPRESSION: Small bowel ileus versus small bowel obstruction with slight worsening.
[2017-02-09] MEDS ORDERED: TPN ADULT 2,400 ML IV SCH (20:00)
[2017-02-10] MEDS: ZOSYN/NS 4.5GM/100ML 4.5 GM/100 ML VIAL IV SCH ×3 (06:10→21:40)
[2017-02-10 06:40] LABS: Anion Gap 17 mmol/L; Blood Urea Nitrogen 19 mg/dL (9-20); Calcium 8.8 mg/dL (8.4-10.2); Carbon Dioxide 34 mmol/L (22-30); Chloride 100.5 mmol/L (98-107); Glucose 117 mg/dL (75-100); Magnesium 2.7 mg/dL (1.7-2.3); Phosphorous 3.7 mg/dL (2.5-4.5); Potassium 3.2 mmol/L (3.6-5.0); Sodium 148 mmol/L (137-145)
[2017-02-10 06:54] LABS: Triglycerides 206 mg/dL (2-149)
--- NOTE | 2017-02-10 09:09 | XRay Report ---
KUB. Findings: Compared to the study on February 09, there has been no interval change in the small bowel distention. The NG tube is unchanged in position. There is a paucity of small bowel gas. Impression: No interval change in small bowel obstructive pattern.
--- NOTE | 2017-02-10 12:27 | Progress Note ---
Subjective Narrative: Pr said he had a BM , KUB read wuth Dr royal , minimal improvement . indicated to Pt we need to cont same , Objective Vital Signs - 12hr 02/10/17 07:35 Temperature 99.2 F Pulse Rate [ 59 L Right Brachial] Respiratory 18 Rate Blood Pressure 142/79 [Right Arm] O2 Sat by Pulse 99 Oximetry - Labs 02/08/17 09:59 02/10/17 06:04 Diabetes panel 02/10/17 Range/Units 06:04 Sodium 148 H (137-145) mmol/L Potassium 3.2 L (3.6-5.0) mmol/L Chloride 100.5 (98-107) mmol/L Carbon Dioxide 34 H (22-30) mmol/L BUN 19 (9-20) mg/dL Creatinine 1.0 (0.8-1.5) mg/dL Glucose 117 H (75-100) mg/dL Calcium 8.8 (8.4-10.2) mg/dL Triglycerides 206 H (2-149) mg/dL Calcium panel 02/10/17 Range/Units 06:04 Calcium 8.8 (8.4-10.2) mg/dL Phosphorus 3.7 (2.5-4.5) mg/dL Pituitary panel 02/10/17 Range/Units 06:04 Sodium 148 H (137-145) mmol/L Potassium 3.2 L (3.6-5.0) mmol/L Chloride 100.5 (98-107) mmol/L Carbon Dioxide 34 H (22-30) mmol/L BUN 19 (9-20) mg/dL Creatinine 1.0 (0.8-1.5) mg/dL Glucose 117 H (75-100) mg/dL Calcium 8.8 (8.4-10.2) mg/dL Adrenal panel 02/10/17 Range/Units 06:04 Sodium 148 H (137-145) mmol/L Potassium 3.2 L (3.6-5.0) mmol/L Chloride 100.5 (98-107) mmol/L Carbon Dioxide 34 H (22-30) mmol/L BUN 19 (9-20) mg/dL Creatinine 1.0 (0.8-1.5) mg/dL Glucose 117 H (75-100) mg/dL Calcium 8.8 (8.4-10.2) mg/dL
[2017-02-10] MEDS ORDERED: TPN ADULT 2,400 ML IV SCH (20:00)
[2017-02-11] MEDS: ZOSYN/NS 4.5GM/100ML 4.5 GM/100 ML VIAL IV SCH ×3 (06:50→22:30)
[2017-02-11 07:22] LABS: Anion Gap 16 mmol/L; BUN/Creatinine Ratio 13.63; Blood Urea Nitrogen 15 mg/dL (9-20); Calcium 8.8 mg/dL (8.4-10.2); Carbon Dioxide 33 mmol/L (22-30); Chloride 96.4 mmol/L (98-107); Glucose 106 mg/dL (75-100); Magnesium 2.5 mg/dL (1.7-2.3); Phosphorous 4.2 mg/dL (2.5-4.5); Potassium 3.1 mmol/L (3.6-5.0); Sodium 142 mmol/L (137-145)
--- NOTE | 2017-02-11 12:09 | XRay Report ---
SUPINE KUB: History: Abdominal distention, small bowel obstruction. No change is demonstrated since yesterday's exam. The nasogastric tube remains in the same position. Multiple moderately dilated loops of small bowel are again noted. There is trace gas in the colon. Recent surgical changes are suspected. IMPRESSION: No change. There multiple dilated loops of small bowel in the abdomen.
--- NOTE | 2017-02-11 13:18 | Progress Note ---
Subjective Patient Reports: Positive: feels better, flatus Narrative: Pt says he had a BM , passe flatu , kub 10/15 % improvement . Xray seen with DR Sesay suggest SBS with gastrograffin indicated the above to Pt . Objective Vital Signs - 12hr 02/11/17 08:00 Temperature 99.2 F Pulse Rate [ 78 Right Brachial] Respiratory 20 Rate Blood Pressure 133/78 [Right Arm] O2 Sat by Pulse 98 Oximetry - Labs 02/08/17 09:59 02/11/17 06:23 Diabetes panel 02/11/17 Range/Units 06:23 Sodium 142 (137-145) mmol/L Potassium 3.1 L (3.6-5.0) mmol/L Chloride 96.4 L (98-107) mmol/L Carbon Dioxide 33 H (22-30) mmol/L BUN 15 (9-20) mg/dL Creatinine 1.1 (0.8-1.5) mg/dL Glucose 106 H (75-100) mg/dL Calcium 8.8 (8.4-10.2) mg/dL Calcium panel 02/11/17 Range/Units 06:23 Calcium 8.8 (8.4-10.2) mg/dL Phosphorus 4.2 (2.5-4.5) mg/dL Pituitary panel 02/11/17 Range/Units 06:23 Sodium 142 (137-145) mmol/L Potassium 3.1 L (3.6-5.0) mmol/L Chloride 96.4 L (98-107) mmol/L Carbon Dioxide 33 H (22-30) mmol/L BUN 15 (9-20) mg/dL Creatinine 1.1 (0.8-1.5) mg/dL Glucose 106 H (75-100) mg/dL Calcium 8.8 (8.4-10.2) mg/dL Adrenal panel 02/11/17 Range/Units 06:23 Sodium 142 (137-145) mmol/L Potassium 3.1 L (3.6-5.0) mmol/L Chloride 96.4 L (98-107) mmol/L Carbon Dioxide 33 H (22-30) mmol/L BUN 15 (9-20) mg/dL Creatinine 1.1 (0.8-1.5) mg/dL Glucose 106 H (75-100) mg/dL Calcium 8.8 (8.4-10.2) mg/dL
[2017-02-11] MEDS: KCL 10MEQ/100ML 10 MEQ/100 ML BAG IV SCH ×2 (16:54→18:05)
[2017-02-11] MEDS: INTRALIPID 20% 250 ML IV SCH ×2 (20:33→20:51)
[2017-02-11] MEDS: TPN ADULT 2,400 ML IV SCH ×2 (20:52→21:00)
--- NOTE | 2017-02-11 21:15 | Progress Note ---
Subjective Narrative: event note ; i talked to RN .Pt pulled IV , we need to give K IV . RN ,will restart it .SBSeries in AM . Objective Vital Signs - 12hr 02/11/17 15:30 Temperature 98.9 F Pulse Rate [ 76 Right Brachial] Respiratory 20 Rate Blood Pressure 128/78 [Right Arm] - Labs 02/08/17 09:59 02/11/17 06:23 Diabetes panel 02/11/17 Range/Units 06:23 Sodium 142 (137-145) mmol/L Potassium 3.1 L (3.6-5.0) mmol/L Chloride 96.4 L (98-107) mmol/L Carbon Dioxide 33 H (22-30) mmol/L BUN 15 (9-20) mg/dL Creatinine 1.1 (0.8-1.5) mg/dL Glucose 106 H (75-100) mg/dL Calcium 8.8 (8.4-10.2) mg/dL Calcium panel 02/11/17 Range/Units 06:23 Calcium 8.8 (8.4-10.2) mg/dL Phosphorus 4.2 (2.5-4.5) mg/dL Pituitary panel 02/11/17 Range/Units 06:23 Sodium 142 (137-145) mmol/L Potassium 3.1 L (3.6-5.0) mmol/L Chloride 96.4 L (98-107) mmol/L Carbon Dioxide 33 H (22-30) mmol/L BUN 15 (9-20) mg/dL Creatinine 1.1 (0.8-1.5) mg/dL Glucose 106 H (75-100) mg/dL Calcium 8.8 (8.4-10.2) mg/dL Adrenal panel 02/11/17 Range/Units 06:23 Sodium 142 (137-145) mmol/L Potassium 3.1 L (3.6-5.0) mmol/L Chloride 96.4 L (98-107) mmol/L Carbon Dioxide 33 H (22-30) mmol/L BUN 15 (9-20) mg/dL Creatinine 1.1 (0.8-1.5) mg/dL Glucose 106 H (75-100) mg/dL Calcium 8.8 (8.4-10.2) mg/dL
[2017-02-12 06:32] LABS: Anion Gap 19 mmol/L; BUN/Creatinine Ratio 15.45; Blood Urea Nitrogen 17 mg/dL (9-20); Calcium 8.8 mg/dL (8.4-10.2); Carbon Dioxide 30 mmol/L (22-30); Chloride 97.1 mmol/L (98-107); Glucose 101 mg/dL (75-100); Magnesium 2.3 mg/dL (1.7-2.3); Phosphorous 2.9 mg/dL (2.5-4.5); Potassium 3.6 mmol/L (3.6-5.0); Sodium 142 mmol/L (137-145)
[2017-02-12] MEDS: ZOSYN/NS 4.5GM/100ML 4.5 GM/100 ML VIAL IV SCH ×3 (06:32→21:16)
[2017-02-12] MEDS ORDERED: SUBLIMAZE ONE (11:57)
[2017-02-12] MEDS ORDERED: DIPRIVAN 10 MG/ML IV ONE (11:57)
[2017-02-12] MEDS ORDERED: XYLOCAINE MPF 2% ONE (11:58)
--- NOTE | 2017-02-12 13:24 | Fluoroscopy Report ---
Small bowel series: Patient with recent bowel resection. A nasogastric tube is present and there is diffuse dilatation of bowel loops on the noncontrasted film. The patient was given oral contrast. Barium was followed through the small bowel into the rectum. There is diffuse dilatation of small bowel loops. Contrast reached the cecum between 60 and 90 minutes. No transition zone identified. Impressions: Nonobstructive small bowel ileus.
[2017-02-12 16:35] LABS: BUN/Creatinine Ratio 14.37; Calcium 9.8 mg/dL (8.4-10.2); Potassium 3.4 mmol/L (3.6-5.0)
[2017-02-12] MEDS ORDERED: TPN ADULT 2,400 ML IV SCH (20:00)
[2017-02-12] MEDS ORDERED: INTRALIPID 20% 250 ML IV SCH (20:00)
[2017-02-12] MEDS ORDERED: K-DUR PO ONE (21:00)
[2017-02-13 06:48] LABS: Calcium 9.4 mg/dL (8.4-10.2); Chloride 98.9 mmol/L (98-107); Magnesium 2.6 mg/dL (1.7-2.3); Phosphorous 4.3 mg/dL (2.5-4.5)
[2017-02-13] MEDS: ZOSYN/NS 4.5GM/100ML 4.5 GM/100 ML VIAL IV SCH (08:22)
--- NOTE | 2017-02-13 14:00 | XRay Report ---
SUPINE KUB: History: Abdominal distention The nasogastric tube has been repositioned or removed since 02/11/17. Multiple dilated loops of small bowel are again noted in the upper abdomen and not significantly changed. There is normal gas in the colon. The lung bases are not included. IMPRESSION: No change. Persistent small bowel dilatation.
--- NOTE | 2017-02-14 13:03 | XRay Report ---
Abdomen single view: Compared to 02/13/17. History: Small bowel ileus. Findings: Distended loops of small and large bowel. No wall thickening. No radiopaque calculus or abnormal calcification. No significant interval change. Impression: No significant interval change.
[2017-02-14] MEDS ORDERED: REGLAN IV PRN (13:55)
[2017-02-15] MEDS ORDERED: MORPHINE IV PRN (09:00)
[2017-02-16 00:24] VITALS: BP 125/83
--- NOTE | 2017-02-16 07:55 | Progress Note ---
Subjective Patient Reports: Positive: no new complaints, feels better, pain is less, flatus , bowel movement Narrative: doing fine home today , will leave retention sutures BTO in 3 weeks Objective Vital Signs - 12hr 02/15/17 02/15/17 02/16/17 20:00 22:00 00:00 Temperature 99.6 F 97.4 F L Pulse Rate [ 97 H 88 Right Brachial] Respiratory 20 18 20 Rate Blood Pressure 131/79 125/83 [Right Arm] O2 Sat by Pulse 95 97 Oximetry - Labs 02/08/17 09:59 02/13/17 05:04
--- NOTE | 2017-02-17 00:26 | Discharge Summary ---
HOSPITAL COURSE: This man was seen in the Emergency Room. He came from a alf facility, complained of severe pain to the abdomen. To him, the pain has been going on for about 4 to 5 days prior to admission. His KUB showed evidence of small-bowel obstruction with hernia in the umbilical area. 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 Postop, he had problem with ileus and protracted course of functional bowel obstruction. Slowly, he improved. He was on TPN and NG suction. We put NG tube on 3 occasions as well as IV. Anyhow, we kept him for a few more days, and he did progressively well. He was improving. Abdomen was soft. At this point, I saw him. I believe he may go home today and see me in office in 2 weeks. I did leave 3 retention sutures. DIET: Ad aniceto. JOB# [id number] NABEEL/GAMAL
== END 2017-02-16 15:30 | disposition home or self-care (01) | DRG 330 ==
LOC: ED 20:42 → 2B-SURG 23:17
PROVIDERS: ADMIT Surgery; ATTEND Surgery
PROC: 0DTB0ZZ Resection of Ileum, Open Approach (ICD-10-PCS; principal; 2017-02-04)
PROC: 0WJP0ZZ Inspection of Gastrointestinal Tract, Open Approach (ICD-10-PCS; 2017-02-04)
PROC: 0WQF0ZZ Repair Abdominal Wall, Open Approach (ICD-10-PCS; 2017-02-04)
DX: K42.1 Umbilical hernia with gangrene (principal); K56.7 Ileus, unspecified; F17.200 Nicotine dependence, unspecified, uncomplicated; Z91.010 Allergy to peanuts; I71.4 Abdominal aortic aneurysm, without rupture
CPT/HCPCS: 36415; 74000; 74177; 74250; 80048; 80053; 82140; 82962; 83735; 84100; 84478; 85007; 85025; 85027; 85610; 87075; 87076; 87116; 87186; 88302; 88305; 88307; 96361; 96365; 96375; J0360; J1100; J1170; J2250; J2270; J2370; J2405; J2543; J2704; J2710; J3010; J3480; J7030; Q9963; Q9967

== ENCOUNTER 2017-02-22 07:15 | Emergency (ER) | payer OTHER ==
[2017-02-22] MEDS ORDERED: NACL 0.9% IR ONE (10:43)
[2017-02-22] MEDS ORDERED: TRIPLE ANTIBIOTIC TP ONE (10:43)
--- NOTE | 2017-02-22 10:48 | Emergency Department Report ---
- General Chief Complaint: Wound/Laceration Stated Complaint: SURGERY SITE POSS INFECT Time Seen by Provider: 02/22/17 10:07 Source: patient Mode of arrival: Ambulatory Limitations: No Limitations - History of Present Illness Onset/Timin -: days(s) Location: abdomen Place: other (had an umbilical hernia repair) Patient Tetanus UTD: Yes Associated Symptoms: denies: pain, loss of feeling/numbness, suspect foreign body present, unable to move injured part, weakness followed by dizziness, nausea/vomiting, fever Treatments Prior to Arrival: bandage - Related Data Previous Rx's Medication Instructions Recorded Last Taken Type Aspirin [Aspirin TAB] 81 mg PO QDAY #30 tablet 02/21/17 Unknown Rx AtorvaSTATin [Lipitor] 20 mg PO QHS #30 tablet 02/21/17 Unknown Rx Clopidogrel [Plavix] 75 mg PO QDAY #30 tablet 02/21/17 Unknown Rx Metoprolol [Lopressor TAB] 25 mg PO BID #60 tablet 02/21/17 Unknown Rx metroNIDAZOLE [Flagyl TAB] 500 mg PO Q8HR 15 Days 02/21/17 Unknown Rx Sulfamethoxazole/Trimethoprim 1 tab PO BID #20 tab 02/22/17 Unknown Rx [Bactrim 400-80 mg] Allergies Allergy/AdvReac Type Severity Reaction Status Date / Time peanut AdvReac Severe Swelling Verified 02/22/17 07:28 ED Review of Systems ROS: Stated complaint: SURGERY SITE POSS INFECT Other details as noted in HPI Constitutional: denies: chills, fever Eyes: denies: eye pain, eye discharge, vision change ENT: denies: ear pain, throat pain Respiratory: denies: cough, shortness of breath, wheezing Cardiovascular: denies: chest pain, palpitations Endocrine: no symptoms reported Gastrointestinal: denies: abdominal pain, nausea, diarrhea Genitourinary: denies: urgency, dysuria Musculoskeletal: denies: back pain, joint swelling, arthralgia Skin: denies: rash, lesions Neurological: denies: headache, weakness, paresthesias Psychiatric: denies: anxiety, depression Hematological/Lymphatic: denies: easy bleeding, easy bruising ED Past Medical Hx - Past Medical History Hx Hypertension: No Hx CVA: No Hx Heart Attack/AMI: No Hx Congestive Heart Failure: No Hx Diabetes: No Hx Deep Vein Thrombosis: No Hx Pulmonary Embolism: No Hx GERD: No Hx Liver Disease: No Hx Renal Disease: No Hx Sickle Cell Disease: No Hx Arthritis: Yes Hx Headaches / Migraines: No Hx Seizures: No Hx Psychiatric Treatment: Yes (depression) Hx Asthma: No Hx COPD: No Hx Tuberculosis: No Hx Dementia: No Hx HIV: No Additional medical history: high cholestrol. sleep apnea - cpap - Surgical History Hx Coronary Stent: No Hx Open Heart Surgery: No Hx Pacemaker: No Hx Internal Defibrillator: No Hx Cholecystectomy: No Hx Appendectomy: No Hx Breast Surgery: No Additional Surgical History: hernia repair. bowel obstruction - Social History Smoking Status: Current Every Day Smoker Substance Use Type: Alcohol, Prescribed - Medications Home Medications: Home Medications Medication Instructions Recorded Confirmed Last Taken Type Aspirin [Aspirin TAB] 81 mg PO QDAY #30 tablet 02/21/17 Unknown Rx AtorvaSTATin [Lipitor] 20 mg PO QHS #30 tablet 02/21/17 Unknown Rx Clopidogrel [Plavix] 75 mg PO QDAY #30 tablet 02/21/17 Unknown Rx Metoprolol [Lopressor TAB] 25 mg PO BID #60 tablet 02/21/17 Unknown Rx metroNIDAZOLE [Flagyl TAB] 500 mg PO Q8HR 15 Days 02/21/17 Unknown Rx Sulfamethoxazole/Trimethoprim 1 tab PO BID #20 tab 02/22/17 Unknown Rx [Bactrim 400-80 mg] ED Physical Exam - General Limitations: No Limitations General appearance: alert, in no apparent distress - Head Head exam: Present: atraumatic, normocephalic - Eye Eye exam: Present: normal appearance - ENT ENT exam: Present: mucous membranes moist - Neck Neck exam: Present: normal inspection - Respiratory Respiratory exam: Present: normal lung sounds bilaterally. Absent: respiratory distress - Cardiovascular Cardiovascular Exam: Present: regular rate, normal rhythm. Absent: systolic murmur, diastolic murmur, rubs, gallop - GI/Abdominal GI/Abdominal exam: Present: soft, normal bowel sounds - Rectal Rectal exam: Present: deferred - Extremities Exam Extremities exam: Present: normal inspection - Back Exam Back exam: Present: normal inspection - Neurological Exam Neurological exam: Present: alert, oriented X3 - Psychiatric Psychiatric exam: Present: normal affect, normal mood - Skin Skin exam: Present: warm, dry, intact, normal color, other (mdline vertical incision with steristrips in place and 3 pieces of rubber placed to keep wound from opening, no odor, non tender , no surrounding erythema). Absent: rash ED Course Vital Signs 02/22/17 02/22/17 07:29 12:56 Temperature 97.7 F Pulse Rate 70 76 Respiratory 18 16 Rate Blood Pressure 152/75 Blood Pressure 148/79 [Left] O2 Sat by Pulse 99 98 Oximetry ED Medical Decision Making - Medical Decision Making patient doing well, incision does not look infected, non tender no erythema, i removed the steri strips and cleaned the wound and gave her abx iv , will place him on outpatient abx and has appointment with roxi in 5 days Critical care attestation.: If time is entered above; I have spent that time in minutes in the direct care of this critically ill patient, excluding procedure time. ED Disposition Clinical Impression: Wound dehiscence, surgical Disposition: DISCHARGED TO HOME OR SELFCARE Is pt being admited?: No Does the pt Need Aspirin: No Condition: Good Instructions: Surgical Site Infections (ED), Wound Healing and Your Diet (ED) Prescriptions: Sulfamethoxazole/Trimethoprim [Bactrim 400-80 mg] 1 tab PO BID #20 tab Referrals: PRIMARY CAREMD [Primary Care Provider] - 3-5 Days Time of Disposition: 13:21
[2017-02-22] MEDS ORDERED: WATER FOR INJ (PF) 10 ML ONE ×2 (11:33→12:26)
[2017-02-22] MEDS: ANCEF IM ONE ×2 (11:43→13:13)
[2017-02-22] MEDS ORDERED: NACL 0.9% 100 ML ONE (12:03)
[2017-02-22] MEDS ORDERED: ANCEF ONE (12:51)
[2017-02-22 13:01] VITALS: BP 148/79
[2017-02-22] MEDS ORDERED: FLAGYL PO SCH (14:00)
[2017-02-22] MEDS ORDERED: LOPRESSOR PO SCH (22:00)
[2017-02-23] MEDS ORDERED: PLAVIX PO SCH (10:00)
[2017-02-23] MEDS ORDERED: ASPIRIN PO SCH (10:00)
== END 2017-02-22 14:34 | disposition home or self-care (01) ==
LOC: ED 07:15
DX: T81.30XA Disruption of wound, unspecified, initial encounter (principal); F32.9 Major depressive disorder, single episode, unspecified; M19.90 Unspecified osteoarthritis, unspecified site; E78.00 Pure hypercholesterolemia, unspecified; F17.200 Nicotine dependence, unspecified, uncomplicated; Z79.82 Long term (current) use of aspirin; Z91.010 Allergy to peanuts
CPT/HCPCS: 96372; 99282; J0690; A6250; A9270-GY

== ENCOUNTER 2017-03-22 03:06 | Inpatient (IN) | payer OTHER ==
[2017-03-22 03:48] LABS: Hematocrit 36.6 % (35.5-45.6); Hemoglobin 12.2 gm/dl (11.8-15.2); Mean Corpuscular HGB Conc 33 % (32-34); Mean Corpuscular Hemoglobin 31 pg (28-32); Mean Corpuscular Volume 93 fl (84-94); Platelet Count 213 K/mm3 (140-440); Red Blood Count 3.94 M/mm3 (3.65-5.03); Red Cell Distribution Width 14.9 % (13.2-15.2); White Blood Count 4.4 K/mm3 (4.5-11.0)
[2017-03-22 03:58] LABS: INR 1.01 (0.87-1.13)
[2017-03-22 03:59] LABS: Partial Thromboplastin Time 29.9 Sec. (24.2-36.6)
[2017-03-22 04:02] LABS: Creatine Kinase MB 1.6 ng/mL (0.0-4.0)
[2017-03-22 04:06] LABS: Anion Gap 19 mmol/L; BUN/Creatinine Ratio 6.66; Blood Urea Nitrogen 6 mg/dL (9-20); Calcium 8.3 mg/dL (8.4-10.2); Carbon Dioxide 23 mmol/L (22-30); Chloride 98.6 mmol/L (98-107); Creatine Kinase 82 units/L (55-170); Glucose 112 mg/dL (75-100); Potassium 3.4 mmol/L (3.6-5.0); Sodium 137 mmol/L (137-145)
[2017-03-22 05:01] LABS: Basophils % (Manual) 0 % (0.0-1.8); Blastocytes % (Manual) 0 %; Diff Status Complete; Eosinophils % (Manual) 0 % (0.0-4.3); RBC Morphology Normal
[2017-03-22] MEDS ORDERED: ALUM-MAG HYDROX-SIMETH 200-200-20MG/5ML PO ONE (10:22)
[2017-03-22] MEDS ORDERED: LIDOCAINE VISCOUS 2% PO ONE (10:22)
[2017-03-22] MEDS ORDERED: K-DUR PO ONE (11:18)
--- NOTE | 2017-03-22 11:28 | Emergency Department Report ---
ED Chest Pain HPI - General Chief Complaint: Chest Pain Stated Complaint: CHEST PAIN Time Seen by Provider: 03/22/17 10:11 Source: patient, old records reviewed (02/2017 for NSTEMI, Cardiac cath: nonobstructive cad, no intervention indcated, medical management recommended, Echo EF 50-55%, impared relaxation) Mode of arrival: Ambulatory Limitations: No Limitations - History of Present Illness Initial Comments: 51-year-old male with a past medical history hyperlipidemia, tobacco use, and possible non-ST elevation last month presents to the hospital complains of chest pain. Because of burning midsternal chest pain that is been constant since last night. Symptoms started while sleeping and woke him up. No aggravating or alleviating factors reported. One episode of diaphoresis. Denies nausea, vomiting, shortness of breath, calf tenderness, unilateral leg edema. Patient was admitted last month February 19 until February 21 for chest pain which he states is similar to this chest pain today. Patient had elevated troponins and was diagnosed with non-ST elevation NC. Cardiac cath revealed nonobstructive CAD. Echo: EF of 55% with impaired relaxation. Patient was discharged to continue beta suma, aspirin, statin, and Plavix. Patient did not fill these medications upon discharge since [facility] He needs paperwork regarding his recent discharge another to get that medication filled. He does not even take aspirin over-the- counter. Severity scale (0 -10): 4 - Related Data Previous Rx's Medication Instructions Recorded Last Taken Type Aspirin [Aspirin TAB] 81 mg PO QDAY #30 tablet 02/21/17 Unknown Rx AtorvaSTATin [Lipitor] 20 mg PO QHS #30 tablet 02/21/17 Unknown Rx Clopidogrel [Plavix] 75 mg PO QDAY #30 tablet 02/21/17 Unknown Rx Metoprolol [Lopressor TAB] 25 mg PO BID #60 tablet 02/21/17 Unknown Rx Allergies Allergy/AdvReac Type Severity Reaction Status Date / Time peanut AdvReac Severe Swelling Verified 02/22/17 07:28 BENSON score - Benson Score Age > 65: (0) No Aspirin use within the Past 7 Days: (0) No 3 or more CAD Risk Factors: (0) No 2 or more Angina events in past 24 hrs: (0) No Known CAD with more than 50% Stenosis: (0) No Elevated Cardiac Markers: (0) No ST Deviation Greater than 0.5mm: (0) No BENSON Score: 0 ED Review of Systems ROS: Stated complaint: CHEST PAIN Other details as noted in HPI Comment: All other systems reviewed and negative Other: Constitutional: No fevers chills Eyes: No eye pain visual changes ENT: No ear pain or throat pain Neck: Denies pain Respiratory: Denies cough wheezing shortness of breath Cardiovascular: Denies palpitations, syncope GI: Denies abdominal pain, nausea, vomiting, diarrhea : Denies dysuria Musculoskeletal: Denies back pain Skin: Denies rash, lesions, erythema Neurologic: Denies headache, numbness, weakness Psychiatric: Denies suicidal ideation, hallucinations ED Past Medical Hx - Past Medical History Previous Medical History?: Yes Hx Hypertension: No Hx CVA: No Hx Heart Attack/AMI: No Hx Congestive Heart Failure: No Hx Diabetes: No Hx Deep Vein Thrombosis: No Hx Pulmonary Embolism: No Hx GERD: No Hx Liver Disease: No Hx Renal Disease: No Hx Sickle Cell Disease: No Hx Arthritis: Yes Hx Headaches / Migraines: No Hx Seizures: No Hx Psychiatric Treatment: Yes (depression) Hx Asthma: No Hx COPD: No Hx Tuberculosis: No Hx Dementia: No Hx HIV: No Additional medical history: high cholestrol. sleep apnea - cpap - Surgical History Past Surgical History?: Yes Hx Coronary Stent: No Hx Open Heart Surgery: No Hx Pacemaker: No Hx Internal Defibrillator: No Hx Cholecystectomy: No Hx Appendectomy: No Hx Breast Surgery: No Additional Surgical History: hernia repair. bowel obstruction (status post bowel resection for gangrene on 02/04/[address] Osorio) - Social History Smoking Status: Current Every Day Smoker (one half pack per day 30 years) Substance Use Type: Alcohol (3 beers a day) - Medications Home Medications: Home Medications Medication Instructions Recorded Confirmed Last Taken Type Aspirin [Aspirin TAB] 81 mg PO QDAY #30 tablet 02/21/17 Unknown Rx AtorvaSTATin [Lipitor] 20 mg PO QHS #30 tablet 02/21/17 Unknown Rx Clopidogrel [Plavix] 75 mg PO QDAY #30 tablet 02/21/17 Unknown Rx Metoprolol [Lopressor TAB] 25 mg PO BID #60 tablet 02/21/17 Unknown Rx ED Physical Exam - General Limitations: No Limitations - Other Other exam information: General: No limitations, patient is alert in no acute distress Head exam: Atraumatic, normocephalic Eyes exam: Normal appearance, pupils equal reactive to light, extraocular movements intact ENT: Moist mucous membrane, normal oropharynx Neck exam: Normal inspection, full range of motion, no meningismus nontender Respiratory exam: Clear to auscultation bilateral, no wheezes, rales, crackles, chest wall nontender Cardiovascular: Normal rate and rhythm, normal heart sounds Abdomen: Soft, nondistended, and nontender, with normal bowel sounds, no rebound, or guarding Extremity: Full range of motion normal inspection no deformity, no calf tenderness, or edema Back: Normal Inspection, full range of motion, no tenderness Neurologic: Alert, oriented x3, cranial nerves intact, no motor or sensory deficit Psychiatric: normal affect, normal mood Skin: Warm, dry, intact ED Course Vital Signs 03/22/17 03/22/17 03/22/17 03:10 08:22 08:30 Temperature 98.2 F Pulse Rate 61 Respiratory 18 Rate Blood Pressure 162/85 Blood Pressure 176/99 [Right] O2 Sat by Pulse 100 100 100 Oximetry 03/22/17 03/22/17 03/22/17 08:40 08:50 09:00 Temperature Pulse Rate Respiratory Rate Blood Pressure 162/85 162/85 140/76 Blood Pressure [Right] O2 Sat by Pulse 100 100 100 Oximetry 03/22/17 03/22/17 03/22/17 09:10 09:20 09:30 Temperature Pulse Rate Respiratory Rate Blood Pressure 140/76 140/76 140/76 Blood Pressure [Right] O2 Sat by Pulse 98 98 99 Oximetry 03/22/17 03/22/17 03/22/17 09:40 09:50 10:00 Temperature Pulse Rate Respiratory Rate Blood Pressure 136/69 136/69 136/69 Blood Pressure [Right] O2 Sat by Pulse 100 100 98 Oximetry 03/22/17 03/22/17 03/22/17 10:11 10:21 10:30 Temperature Pulse Rate Respiratory Rate Blood Pressure 138/74 147/82 Blood Pressure [Right] O2 Sat by Pulse 99 97 100 Oximetry 03/22/17 03/22/17 03/22/17 10:41 10:51 11:01 Temperature Pulse Rate Respiratory Rate Blood Pressure 147/82 147/82 161/87 Blood Pressure [Right] O2 Sat by Pulse 100 99 100 Oximetry - Reevaluation(s) Reevaluation #1: 03/22/17 11:21 pt received Maalox and viscous lidocaine with some improvement in pain. - Consultations Consultation #1: 03/22/17 11:54 DR jeff (cardiology [facility]) in ED to evaluate pt. Pt will be admitted to be observed ED Medical Decision Making - Lab Data Result diagrams: 03/22/17 03:25 03/22/17 03:25 Lab Results 03/22/17 03/22/17 03/22/17 Range/Units 03:25 03:25 03:25 WBC 4.4 L (4.5-11.0) K/mm3 RBC 3.94 (3.65-5.03) M/mm3 Hgb 12.2 (11.8-15.2) gm/dl Hct 36.6 (35.5-45.6) % MCV 93 (84-94) fl MCH 31 (28-32) pg MCHC 33 (32-34) % RDW 14.9 (13.2-15.2) % Plt Count 213 (140-440) K/mm3 [place] % (Auto) Tattoo Designer Add Manual Diff Complete Total Counted 100 Seg Neuts % (Manual) 59.0 (40.0-70.0) % Band Neutrophils % 0 % Lymphocytes % (Manual) 27.0 (13.4-35.0) % Reactive Lymphs % (Man) 1.0 % Monocytes % (Manual) 13.0 H (0.0-7.3) % Eosinophils % (Manual) 0 (0.0-4.3) % Basophils % (Manual) 0 (0.0-1.8) % Metamyelocytes % 0 % Myelocytes % 0 % Promyelocytes % 0 % Blast Cells % 0 % Nucleated RBC % Not Reportable Seg Neutrophils # Man 2.6 (1.8-7.7) K/mm3 Band Neutrophils # 0.0 K/mm3 Lymphocytes # (Manual) 1.2 (1.2-5.4) K/mm3 Abs React Lymphs (Man) 0.0 K/mm3 Monocytes # (Manual) 0.6 (0.0-0.8) K/mm3 Eosinophils # (Manual) 0.0 (0.0-0.4) K/mm3 Basophils # (Manual) 0.0 (0.0-0.1) K/mm3 Metamyelocytes # 0.0 K/mm3 Myelocytes # 0.0 K/mm3 Promyelocytes # 0.0 K/mm3 Blast Cells # 0.0 K/mm3 WBC Morphology Not Reportable Hypersegmented Neuts Not Reportable Hyposegmented Neuts Not Reportable Hypogranular Neuts Not Reportable Smudge Cells Not Reportable Toxic Granulation Not Reportable Toxic Vacuolation Not Reportable Dohle Bodies Not Reportable Pelger-Huet Anomaly Not Reportable Zainab Rods Not Reportable Platelet Estimate Appears normal Clumped Platelets Not Reportable Plt Clumps, EDTA Not Reportable Large Platelets Not Reportable Giant Platelets Not Reportable Platelet Satelliting Not Reportable Plt Morphology Comment Not Reportable RBC Morphology Normal Dimorphic RBCs Not Reportable Polychromasia Not Reportable Hypochromasia Not Reportable Poikilocytosis Not Reportable Anisocytosis Not Reportable Microcytosis Not Reportable Macrocytosis Not Reportable Spherocytes Not Reportable Pappenheimer Bodies Not Reportable Sickle Cells Not Reportable Target Cells Not Reportable Tear Drop Cells Not Reportable Ovalocytes Not Reportable Helmet Cells Not Reportable [place] Bodies Not Reportable [place] Rings Not Reportable [place] Cells Not Reportable Bite Cells Not Reportable Crenated Cell Not Reportable Elliptocytes Not Reportable Acanthocytes (Spur) Not Reportable Rouleaux Not Reportable Hemoglobin C Crystals Not Reportable Schistocytes Not Reportable Malaria parasites Not Reportable Keven Bodies Not Reportable Hem Pathologist Commnt No PT 13.2 (12.2-14.9) Sec. INR 1.01 (0.87-1.13) APTT 29.9 (24.2-36.6) Sec. Sodium 137 (137-145) mmol/L Potassium 3.4 L (3.6-5.0) mmol/L Chloride 98.6 (98-107) mmol/L Carbon Dioxide 23 (22-30) mmol/L Anion Gap 19 mmol/L BUN 6 L (9-20) mg/dL Creatinine 0.9 (0.8-1.5) mg/dL Estimated GFR > 60 ml/min BUN/Creatinine Ratio 6.66 % Glucose 112 H (75-100) mg/dL Calcium 8.3 L (8.4-10.2) mg/dL Total Creatine Kinase 82 (55-170) units/L CK-MB (CK-2) 1.6 (0.0-4.0) ng/mL CK-MB (CK-2) Rel Index 1.9 (0-4) Troponin T < 0.010 (0.00-0.029) ng/mL Triglycerides (2-149) mg/dL Cholesterol (50-199) mg/dL LDL Cholesterol Direct (50-130) mg/dL HDL Cholesterol (40-59) mg/dL Cholesterol/HDL Ratio % 03/22/17 03/22/17 Range/Units 06:13 09:36 WBC (4.5-11.0) K/mm3 RBC (3.65-5.03) M/mm3 Hgb (11.8-15.2) gm/dl Hct (35.5-45.6) % MCV (84-94) fl MCH (28-32) pg MCHC (32-34) % RDW (13.2-15.2) % Plt Count (140-440) K/mm3 [place] % (Auto) Add Manual Diff Total Counted Seg Neuts % (Manual) (40.0-70.0) % Band Neutrophils % % Lymphocytes % (Manual) (13.4-35.0) % Reactive Lymphs % (Man) % Monocytes % (Manual) (0.0-7.3) % Eosinophils % (Manual) (0.0-4.3) % Basophils % (Manual) (0.0-1.8) % Metamyelocytes % % Myelocytes % % Promyelocytes % % Blast Cells % % Nucleated RBC % Seg Neutrophils # Man (1.8-7.7) K/mm3 Band Neutrophils # K/mm3 Lymphocytes # (Manual) (1.2-5.4) K/mm3 Abs React Lymphs (Man) K/mm3 Monocytes # (Manual) (0.0-0.8) K/mm3 Eosinophils # (Manual) (0.0-0.4) K/mm3 Basophils # (Manual) (0.0-0.1) K/mm3 Metamyelocytes # K/mm3 Myelocytes # K/mm3 Promyelocytes # K/mm3 Blast Cells # K/mm3 WBC Morphology Hypersegmented Neuts Hyposegmented Neuts Hypogranular Neuts Smudge Cells Toxic Granulation Toxic Vacuolation Dohle Bodies Pelger-Huet Anomaly Zainab Rods Platelet Estimate Clumped Platelets Plt Clumps, EDTA Large Platelets Giant Platelets Platelet Satelliting Plt Morphology Comment RBC Morphology Dimorphic RBCs Polychromasia Hypochromasia Poikilocytosis Anisocytosis Microcytosis Macrocytosis Spherocytes Pappenheimer Bodies Sickle Cells Target Cells Tear Drop Cells Ovalocytes Helmet Cells [place] Bodies [place] Rings [place] Cells Bite Cells Crenated Cell Elliptocytes Acanthocytes (Spur) Rouleaux Hemoglobin C Crystals Schistocytes Malaria parasites Keven Bodies Hem Pathologist Commnt PT (12.2-14.9) Sec. INR (0.87-1.13) APTT (24.2-36.6) Sec. Sodium (137-145) mmol/L Potassium (3.6-5.0) mmol/L Chloride (98-107) mmol/L Carbon Dioxide (22-30) mmol/L Anion Gap mmol/L BUN (9-20) mg/dL Creatinine (0.8-1.5) mg/dL Estimated GFR ml/min BUN/Creatinine Ratio % Glucose (75-100) mg/dL Calcium (8.4-10.2) mg/dL Total Creatine Kinase (55-170) units/L CK-MB (CK-2) (0.0-4.0) ng/mL CK-MB (CK-2) Rel Index (0-4) Troponin T < 0.010 0.034 H D (0.00-0.029) ng/mL Triglycerides 53 (2-149) mg/dL Cholesterol 295 H (50-199) mg/dL LDL Cholesterol Direct 197 H (50-130) mg/dL HDL Cholesterol 88 H (40-59) mg/dL Cholesterol/HDL Ratio 3.35 % - EKG Data -: EKG Interpreted by Me (nsr rate 60. nonspecific st t wave abnl) - EKG Data When compared to previous EKG there are: changes noted (02/20/17, inf t inv) - Medical Decision Making Patient's pain is atypical. Patient's troponin was negative 2 with slight increase in thirst. EKG has changed compared to previous but improved today. Patient was admitted for recent cardiac workup showed nonobstructive disease and medical management was recommended. Patient has been noncompliant on medications secondary not completing the process to [facility]. - Differential Diagnosis gerd, mi, unstable angina, atypical chest pain Critical Care Time: No Critical care attestation.: If time is entered above; I have spent that time in minutes in the direct care of this critically ill patient, excluding procedure time. ED Disposition Clinical Impression: Burning chest pain, Noncompliance with medication regimen, Daily consumption of alcohol, Tobacco use, Hyperlipemia, Hypokalemia Disposition: OP ADMITTED IP TO THIS HOSP Is pt being admited?: Yes Condition: Stable Time of Disposition: 12:18 (Dr Christopher/hosp)
--- NOTE | 2017-03-22 12:26 | History and Physical Report ---
History of Present Illness Chief complaint: My chest hurts History of present illness: 51 YO Male with ETOH Abuse, CAD, HTN, Medication Noncompliance, HI, Metabolic Syndrome, FREYA on CPAP, OA, Nicotine Dependence presents to ED for evaluation. Pt states that he has experienced pain in his chest for the past 1 day with worsening symptoms over the past 4 hours. Symptoms awoke him from sleep. Pt states that pain is 4/10, midsternal, constant, nonradiating, not exacerbated with exertion, or relieved with rest. Pt denies nausea, vomiting, shortness of breath, calf tenderness, unilateral leg edema, prolonged travel/immobility, individual/family history of DVT/PE, hemoptysis, syncope, or recent ill contacts. Past History Past Medical History: acute HI, arthritis, CAD, hypertension, hyperlipidemia Past Surgical History: hernia repair Social history: , smoking, alcohol abuse. denies: prescription drug abuse, IV drug use Family history: diabetes, hypertension Medications and Allergies Allergies Allergy/AdvReac Type Severity Reaction Status Date / Time peanut AdvReac Severe Swelling Verified 02/22/17 07:28 Home Medications Medication Instructions Recorded Confirmed Last Taken Type Aspirin [Aspirin TAB] 81 mg PO QDAY #30 tablet 02/21/17 Unknown Rx AtorvaSTATin [Lipitor] 20 mg PO QHS #30 tablet 02/21/17 Unknown Rx Clopidogrel [Plavix] 75 mg PO QDAY #30 tablet 02/21/17 Unknown Rx Metoprolol [Lopressor TAB] 25 mg PO BID #60 tablet 02/21/17 Unknown Rx metroNIDAZOLE [Flagyl TAB] 500 mg PO Q8HR 15 Days 02/21/17 Unknown Rx Sulfamethoxazole/Trimethoprim 1 tab PO BID #20 tab 02/22/17 Unknown Rx [Bactrim 400-80 mg] Review of Systems All systems: negative Cardiovascular: chest pain Exam - Constitutional Vitals: Temp Pulse Resp BP Pulse Ox 98.2 F 61 18 161/87 100 03/22/17 03:10 03/22/17 03:10 03/22/17 03:10 03/22/17 11:01 03/22/17 11:01 General appearance: Present: obese - EENT Eyes: Present: PERRL ENT: hearing intact, clear oral mucosa - Neck Neck: Present: supple, normal ROM - Respiratory Respiratory effort: normal Respiratory: bilateral: CTA - Cardiovascular Heart Sounds: Present: S1 & S2. Absent: rub, click - Extremities Extremities: pulses symmetrical, No edema Peripheral Pulses: within normal limits - Abdominal General gastrointestinal: Present: soft, non-tender, non-distended, normal bowel sounds Male genitourinary: Present: normal - Integumentary Integumentary: Present: clear, warm, dry - Musculoskeletal Musculoskeletal: gait normal, strength equal bilaterally - Psychiatric Psychiatric: appropriate mood/affect, intact judgment & insight - Neurologic Neurologic: CNII-XII intact, moves all extremities Results - Labs CBC & Chem 7: 03/22/17 03:25 03/22/17 03:25 Labs: Abnormal lab results 03/22/17 03/22/17 03/22/17 Range/Units 03:25 03:25 09:36 WBC 4.4 L (4.5-11.0) K/mm3 Monocytes % (Manual) 13.0 H (0.0-7.3) % Potassium 3.4 L (3.6-5.0) mmol/L BUN 6 L (9-20) mg/dL Glucose 112 H (75-100) mg/dL Calcium 8.3 L (8.4-10.2) mg/dL Troponin T 0.034 H D (0.00-0.029) ng/mL Cholesterol 295 H (50-199) mg/dL LDL Cholesterol Direct 197 H (50-130) mg/dL HDL Cholesterol 88 H (40-59) mg/dL Assessment and Plan - Patient Problems (1) ACS (acute coronary syndrome) Current Visit: Yes Status: Acute Plan to address problem: Serial cardiac enzyme, ekg, telemetry, d dimer, supportive care. (2) CAD (coronary artery disease) Current Visit: Yes Status: Acute Qualifiers: Coronary Disease-Associated Artery/Lesion type: C [place] vs. transplanted heart: N Associated angina: A Plan to address problem: Stable angina: resume home medication, serial cardiac enzymes, supportive care. DAPT, statin, (3) Accelerated hypertension Current Visit: Yes Status: Acute Plan to address problem: resume home medication, monitor bp q shift, (4) Metabolic syndrome Current Visit: Yes Status: Acute Plan to address problem: Pt counseled, resume statin, balanced diet, increased physical activity (5) FREYA (obstructive sleep apnea) Current Visit: Yes Status: Acute Plan to address problem: CPAP qhs, (6) ETOH abuse Current Visit: Yes Status: Acute Plan to address problem: thiamin, folic acid, multivitamin, ciwa protocol (7) DVT prophylaxis Current Visit: Yes Status: Acute
[2017-03-22] MEDS ORDERED: DULCOLAX PR PRN (12:47)
[2017-03-22] MEDS ORDERED: TYLENOL PO PRN (12:47)
[2017-03-22] MEDS ORDERED: ZOFRAN IV PRN (12:47)
[2017-03-22] MEDS ORDERED: MILK OF MAGNESIA PO PRN (12:47)
[2017-03-22] MEDS ORDERED: SODIUM CHLORIDE FLUSH SYRINGE 10 ML IV PRN (12:50)
[2017-03-22] MEDS ORDERED: VITAMIN B-1 PO ONE ×2 (12:51→16:00)
[2017-03-22] MEDS ORDERED: THERAGRAN Tab PO ONE ×2 (12:51→15:30)
[2017-03-22] MEDS ORDERED: ATIVAN IV PRN ×2 (12:52)
[2017-03-22 16:37] LABS: Creatine Kinase MB 20.1 ng/mL (0.0-4.0)
[2017-03-22] MEDS: LOVENOX SUB-Q SCH ×2 (18:40→21:59)
[2017-03-22 20:02] LABS: Creatine Kinase MB 20.3 ng/mL (0.0-4.0)
[2017-03-22] MEDS: LOPRESSOR PO SCH (21:58)
--- NOTE | 2017-03-23 05:08 | Consultation ---
REASON FOR CONSULTATION: Chest pain. HISTORY OF PRESENT ILLNESS: This 51-year-old with a history of coronary artery disease that was documented on 02/21/2017, when he came with chest pain and he was treated as NSTEMI. At that time, he had a cardiac catheterization and did not require any stent deployment because of the coronary anatomy. Ejection fraction was 55%.He presents with chest pains.Patient did not take any medications ,not even aspirin. CORONARY ARTERIES: Right coronary artery revealed ectasia in the middle and distal part. There were collaterals from distal right coronary artery to circumflex coronary artery, proximal part on injection of the RCA. Left coronary artery revealed 30-40% smooth left main disease with aneurysmal dilatation of the distal left main and LAD. There was 20-30% lesion noted in the middle part. Large ramus branch showed 80% focal lesion in the distal part. Circumflex was totally occluded at the origin and he had collateral from RCA to circumflex. Therefore, because of the anatomy, he was advised to go on medial therapy, which he did not take. He was prescribed atorvastatin 20 mg, aspirin 81 mg a day, clopidogrel 75 mg a day, metoprolol 25 mg twice a day. The patient did not go to the hospital to get the medication filled. The patient also claims that he was advised to pay 10$ for the medical records to take from here to [facility] for medications.He did not have money. SOCIAL HISTORY: The patient is not . He smokes about 6-10 cigarettes per day. Drinks 2 or 3 cans of beer everyday. FAMILY HISTORY: Not contributory for this established patient with coronary artery disease. REVIEW OF SYSTEMS: The patient denies any history of hypertension, diabetes, or thyroid disease. GI, no history of peptic ulcer disease, but he was given GI cocktail in the Emergency Room with some improvement in his burning pain. Genitourinary, no symptoms. Neuropsychiatry, no symptoms. PHYSICAL EXAMINATION: GENERAL: The patient in no acute distress. VITAL SIGNS: Blood pressure 126/80, pulse 70 per minute. NECK: No JVD elevation, no bruits. HEART: PMI not palpable. Heart sounds audible. S4 noted. No murmurs. LUNGS: Clear. ABDOMEN: Soft, nontender. Bowel sounds are active. EXTREMITIES: No edema, good pulses. EKG revealed sinus rhythm, no specific ST-T wave changes. T wave inversion is no longer noted compared to previous EKG in the precordial leads. LABORATORY TESTS: First 2 troponin levels are normal. Third one is borderline at 0.03. IMPRESSION: 1. Chest pain, most likely unstable angina pectoris. He needs to have followup troponin levels and resume all the medications that were given upon discharge. 2. Chronic smoking. 3. History of alcohol abuse. DISCUSSION: The patient is noncompliant with medications. Upon discharge he did not take any of the medications including even aspirin.Would liketo make sure that he gets cardiac medications till he gets medications filled up in [facility]. To get 2 more sets of troponin. JOB# [id number] KASANDRA/GAMAL GALICIA
[2017-03-23] MEDS: LOVENOX SUB-Q SCH ×2 (09:57→23:16)
[2017-03-23] MEDS: PLAVIX PO SCH (09:57)
[2017-03-23] MEDS: FOLVITE PO SCH (09:57)
[2017-03-23] MEDS: BABY ASPIRIN PO SCH (09:57)
[2017-03-23] MEDS: LOPRESSOR PO SCH ×3 (09:58→23:00)
[2017-03-23] MEDS ORDERED: ASPIRIN PO SCH (10:00)
--- NOTE | 2017-03-23 11:34 | Event Note ---
Date: 03/22/17 Patient was seen in ER. Spoke with ER doctor. Advised admission and to treat as NSTEMI.Patient did not take any medications after he was discharged. Full note dictated. Dr Boyd.
--- NOTE | 2017-03-23 11:41 | Progress Note ---
Assessment and Plan NSTEMI. Familial hypercholesterolemia. Smoking. Plan: Increase atorvastatin to 80 mg/day Discussed about importance of taking medications. Does not need repeat cardiac cath as he had last month after NSTEMI. Subjective Date of service: 03/23/17 Interval history: Ignacio claims his chest pain subsided around 7 pm yesterday.OOB with BR privileges Objective Vital Signs Temp Pulse Pulse Pulse Resp BP BP 03/23/17 07:20 99.0 F 57 L 16 154/76 03/23/17 05:25 98.0 F 50 L 18 126/70 03/23/17 01:43 90 23 03/23/17 00:54 56 L 03/23/17 00:00 98.6 F 51 L 16 157/90 03/22/17 21:58 151/81 03/22/17 20:57 03/22/17 19:00 98.3 F 53 L 18 151/81 03/22/17 17:39 58 L 148/80 03/22/17 16:59 98.1 F 58 L 16 148/80 03/22/17 15:51 126/67 03/22/17 15:41 126/67 03/22/17 15:30 126/67 03/22/17 15:21 121/70 03/22/17 15:10 121/70 03/22/17 15:00 121/70 03/22/17 14:50 135/68 03/22/17 14:41 135/68 03/22/17 14:30 135/68 03/22/17 14:21 149/88 03/22/17 14:11 149/88 03/22/17 14:01 149/88 03/22/17 13:51 134/77 03/22/17 13:48 16 03/22/17 13:41 134/77 03/22/17 13:30 134/77 03/22/17 13:21 136/73 03/22/17 13:11 136/73 03/22/17 13:00 136/73 03/22/17 12:51 134/75 Pulse Ox 03/23/17 07:20 97 03/23/17 05:25 03/23/17 01:43 98 03/23/17 00:54 03/23/17 00:00 100 03/22/17 21:58 03/22/17 20:57 95 03/22/17 19:00 03/22/17 17:39 03/22/17 16:59 99 03/22/17 15:51 95 03/22/17 15:41 98 03/22/17 15:30 96 03/22/17 15:21 96 03/22/17 15:10 97 03/22/17 15:00 95 03/22/17 14:50 97 03/22/17 14:41 95 03/22/17 14:30 97 03/22/17 14:21 98 03/22/17 14:11 98 03/22/17 14:01 91 03/22/17 13:51 98 03/22/17 13:48 03/22/17 13:41 97 03/22/17 13:30 96 03/22/17 13:21 95 03/22/17 13:11 95 03/22/17 13:00 95 03/22/17 12:51 95 - Physical Examination General: Appears Well, No Apparent Distress HEENT: Positive: Mucus Membranes Moist Neck: Negative: JVD/HJR Cardiac: Positive: Regular Rate, S4 Lungs: Positive: clear to auscultation, Normal Breath Sounds Abdomen: Positive: Soft, Active Bowel Sounds. Negative: Organomegaly Extremities: Present: normal. Absent: edema - Labs and Meds Cardiac Enzymes 03/22/17 03/22/17 Range/Units 15:13 19:07 CK-MB (CK-2) 20.1 H 20.3 H (0.0-4.0) ng/mL - Imaging and Cardiology EKG: report reviewed - Telemetry EKG Rhythm: Sinus Rhythm - EKG Sinus rhythms and dysrhythmias: sinus rhythm Repolarization changes or abnormalities: nonspecific abnormality, ST segment, and/or T wave
--- NOTE | 2017-03-23 15:09 | Progress Note ---
Assessment and Plan Assessment and plan: NSTEMI CAD HLD Tobacco use - cardiology was consulted hence he has recent cath, doesn't need cardiac cath again - Patient didn't take any of his meds after discharge - We started on appropriate medications for non-STEMI - We'll continue to monitor - Counsell cessation of smoking - Wood Grainer about medication adherence DVT prophylaxis on therapeutic Lovenox disposition - We will discharge likely tomorrow History Interval history: Patient was seen and evaluated this morning, currently patient denies any chest pain, the last episode was around 7:30 this morning. Patient has been admitted a month ago for non-STEMI and cardiac workup was done. Hospitalist Physical - Physical exam Narrative exam: Not in cardiopulmonary distress. The patient is obese. Vital signs as documented. Head exam is unremarkable. No scleral icterus . Neck is without jugular venous distension, thyromegaly, or carotid bruits. Lungs are clear to auscultation. Cardiac exam reveals regular rate and Rhythm. First and second heart sounds normal. No murmurs, rubs or gallops. Abdominal exam reveals healed midline surgical scar. Extremities are nonedematous and both femoral and pedal pulses are normal. LAND SURVEYING MANAGER: Alert and oriented 3. - Constitutional Vitals: Temp Pulse Resp BP Pulse Ox 99.0 F 58 L 16 154/76 98 03/23/17 07:20 03/23/17 07:27 03/23/17 07:20 03/23/17 07:20 03/23/17 10:00 General appearance: Present: obese Results - Labs CBC & Chem 7: 03/22/17 03:25 03/22/17 03:25 Labs: Laboratory Last Values WBC 4.4 K/mm3 (4.5-11.0) L 03/22/17 03:25 RBC 3.94 M/mm3 (3.65-5.03) 03/22/17 03:25 Hgb 12.2 gm/dl (11.8-15.2) 03/22/17 03:25 Hct 36.6 % (35.5-45.6) 03/22/17 03:25 MCV 93 fl (84-94) 03/22/17 03:25 MCH 31 pg (28-32) 03/22/17 03:25 MCHC 33 % (32-34) 03/22/17 03:25 RDW 14.9 % (13.2-15.2) 03/22/17 03:25 Plt Count 213 K/mm3 (140-440) 03/22/17 03:25 [place] % (Auto) Office Support Specialist 03/22/17 03:25 Add Manual Diff Complete 03/22/17 03:25 Total Counted 100 03/22/17 03:25 Seg Neuts % (Manual) 59.0 % (40.0-70.0) 03/22/17 03:25 Band Neutrophils % 0 % 03/22/17 03:25 Lymphocytes % (Manual) 27.0 % (13.4-35.0) 03/22/17 03:25 Reactive Lymphs % (Man) 1.0 % 03/22/17 03:25 Monocytes % (Manual) 13.0 % (0.0-7.3) H 03/22/17 03:25 Eosinophils % (Manual) 0 % (0.0-4.3) 03/22/17 03:25 Basophils % (Manual) 0 % (0.0-1.8) 03/22/17 03:25 Metamyelocytes % 0 % 03/22/17 03:25 Myelocytes % 0 % 03/22/17 03:25 Promyelocytes % 0 % 03/22/17 03:25 Blast Cells % 0 % 03/22/17 03:25 Nucleated RBC % Not Reportable 03/22/17 03:25 Seg Neutrophils # Man 2.6 K/mm3 (1.8-7.7) 03/22/17 03:25 Band Neutrophils # 0.0 K/mm3 03/22/17 03:25 Lymphocytes # (Manual) 1.2 K/mm3 (1.2-5.4) 03/22/17 03:25 Abs React Lymphs (Man) 0.0 K/mm3 03/22/17 03:25 Monocytes # (Manual) 0.6 K/mm3 (0.0-0.8) 03/22/17 03:25 Eosinophils # (Manual) 0.0 K/mm3 (0.0-0.4) 03/22/17 03:25 Basophils # (Manual) 0.0 K/mm3 (0.0-0.1) 03/22/17 03:25 Metamyelocytes # 0.0 K/mm3 03/22/17 03:25 Myelocytes # 0.0 K/mm3 03/22/17 03:25 Promyelocytes # 0.0 K/mm3 03/22/17 03:25 Blast Cells # 0.0 K/mm3 03/22/17 03:25 WBC Morphology Not Reportable 03/22/17 03:25 Hypersegmented Neuts Not Reportable 03/22/17 03:25 Hyposegmented Neuts Not Reportable 03/22/17 03:25 Hypogranular Neuts Not Reportable 03/22/17 03:25 Smudge Cells Not Reportable 03/22/17 03:25 Toxic Granulation Not Reportable 03/22/17 03:25 Toxic Vacuolation Not Reportable 03/22/17 03:25 Dohle Bodies Not Reportable 03/22/17 03:25 Pelger-Huet Anomaly Not Reportable 03/22/17 03:25 Zainab Rods Not Reportable 03/22/17 03:25 Platelet Estimate Appears normal 03/22/17 03:25 Clumped Platelets Not Reportable 03/22/17 03:25 Plt Clumps, EDTA Not Reportable 03/22/17 03:25 Large Platelets Not Reportable 03/22/17 03:25 Giant Platelets Not Reportable 03/22/17 03:25 Platelet Satelliting Not Reportable 03/22/17 03:25 Plt Morphology Comment Not Reportable 03/22/17 03:25 RBC Morphology Normal 03/22/17 03:25 Dimorphic RBCs Not Reportable 03/22/17 03:25 Polychromasia Not Reportable 03/22/17 03:25 Hypochromasia Not Reportable 03/22/17 03:25 Poikilocytosis Not Reportable 03/22/17 03:25 Anisocytosis Not Reportable 03/22/17 03:25 Microcytosis Not Reportable 03/22/17 03:25 Macrocytosis Not Reportable 03/22/17 03:25 Spherocytes Not Reportable 03/22/17 03:25 Pappenheimer Bodies Not Reportable 03/22/17 03:25 Sickle Cells Not Reportable 03/22/17 03:25 Target Cells Not Reportable 03/22/17 03:25 Tear Drop Cells Not Reportable 03/22/17 03:25 Ovalocytes Not Reportable 03/22/17 03:25 Helmet Cells Not Reportable 03/22/17 03:25 Booth-Aguilares Bodies Not Reportable 03/22/17 03:25 [place] Rings Not Reportable 03/22/17 03:25 Vaibhav Cells Not Reportable 03/22/17 03:25 Bite Cells Not Reportable 03/22/17 03:25 Crenated Cell Not Reportable 03/22/17 03:25 Elliptocytes Not Reportable 03/22/17 03:25 Acanthocytes (Spur) Not Reportable 03/22/17 03:25 Rouleaux Not Reportable 03/22/17 03:25 Hemoglobin C Crystals Not Reportable 03/22/17 03:25 Schistocytes Not Reportable 03/22/17 03:25 Malaria parasites Not Reportable 03/22/17 03:25 Keven Bodies Not Reportable 03/22/17 03:25 Hem Pathologist Commnt No 03/22/17 03:25 PT 13.2 Sec. (12.2-14.9) 03/22/17 03:25 INR 1.01 (0.87-1.13) 03/22/17 03:25 APTT 29.9 Sec. (24.2-36.6) 03/22/17 03:25 Sodium 137 mmol/L (137-145) 03/22/17 03:25 Potassium 3.4 mmol/L (3.6-5.0) L 03/22/17 03:25 Chloride 98.6 mmol/L (98-107) 03/22/17 03:25 Carbon Dioxide 23 mmol/L (22-30) 03/22/17 03:25 Anion Gap 19 mmol/L 03/22/17 03:25 BUN 6 mg/dL (9-20) L 03/22/17 03:25 Creatinine 0.9 mg/dL (0.8-1.5) 03/22/17 03:25 Estimated GFR > 60 ml/min 03/22/17 03:25 BUN/Creatinine Ratio 6.66 % 03/22/17 03:25 Glucose 112 mg/dL (75-100) H 03/22/17 03:25 Calcium 8.3 mg/dL (8.4-10.2) L 03/22/17 03:25 Total Creatine Kinase 182 units/L (55-170) H 03/22/17 19:07 CK-MB (CK-2) 20.3 ng/mL (0.0-4.0) H 03/22/17 19:07 CK-MB (CK-2) Rel Index 11.1 (0-4) H 03/22/17 19:07 Troponin T 0.255 ng/mL (0.00-0.029) H* D 03/22/17 19:07 Triglycerides 53 mg/dL (2-149) 03/22/17 09:36 Cholesterol 295 mg/dL (50-199) H 03/22/17 09:36 LDL Cholesterol Direct 197 mg/dL (50-130) H 03/22/17 09:36 HDL Cholesterol 88 mg/dL (40-59) H 03/22/17 09:36 Cholesterol/HDL Ratio 3.35 % 03/22/17 09:36 Troponin is pending and last one was 0.255
[2017-03-23] MEDS ORDERED: K-DUR PO ONE (16:00)
[2017-03-24 05:26] LABS: Anion Gap 14 mmol/L; Blood Urea Nitrogen 7 mg/dL (9-20); Calcium 8.5 mg/dL (8.4-10.2); Carbon Dioxide 26 mmol/L (22-30); Chloride 102.4 mmol/L (98-107); Glucose 100 mg/dL (75-100); Potassium 4.4 mmol/L (3.6-5.0); Sodium 138 mmol/L (137-145)
--- NOTE | 2017-03-24 08:16 | Admit Criteria Form ---
Admission Criteria Documentation: CHEST PAIN Clinical Indications for Admission to Inpatient Care (Place 'X' for any and all applicable criteria): Admission is indicated for chest pain and ANY ONE of the following(1)(2)(3)(4)(5 ): [X]I. Angina with acute coronary syndrome (Also use Myocardial Infarction or Angina guideline) [ ]II. Hemodynamic instability [ ]III. Angina needing acute intervention as indicated by ALL of the following( 11)(12): [ ]a) Unstable angina is present as indicated by angina that is ANY ONE of the following: [ ]i) New onset [ ]ii) Nocturnal [ ]iii) Prolonged at rest [ ]iv) Progressive [ ]b) Angina warrants acute intervention as indicated by ANY ONE of the following: [ ]i) Recurrent angina (e.g, not responding as previously to treatment) [ ]ii) Angina at rest or with low-level activities despite initial medical therapy [ ]iii) New or presumably new ST-segment depression on ECG [ ]iv) Signs or symptoms of heart failure (eg, dyspnea, pulmonary edema) [ ]v) New or worsening mitral regurgitation [ ]vi) Hemodynamic instability [ ]vii) Dangerous arrhythmia (eg, sustained ventricular tachycardia) [ ]viii) History of percutaneous coronary intervention within 6 months [ ]ix) History of coronary artery bypass graft surgery [ ]x) CUONG risk score of 2 or greater[A] [ ]xi) History of Diabetes(14) [ ]xii) High-risk cardiac ischemia findings on noninvasive testing (e.g, echocardiogram, treadmill testing, nuclear scan) [ ]xiii) Chronic renal insufficiency (ie, estimated GFR less than 60 mL/min/1.732m) [ ]xiv) Left ventricular ejection fraction less than 40% [ ]IV. Evidence of [place] (eg, cardiac biomarkers positive, ST-segment elevation on ECG) also use Myocardial Infarction Criteria Form. [ ]V. Pulmonary edema [ ]. Respiratory distress [ ]VII. Chest pain indicative of serious diagnosis other than coronary artery disease (eg, aortic dissection) [ ]VIII. Contraindications and/or Inappropriate clinical situations for Observational Care in patients with Chest Pain, when ANY ONE of the following is required: [ ]a) Patient with risk factor for pulmonary embolism, acute coronary syndrome and myocardial infarction (18) [ ]b) Patient with Pulmonary embolism require an average LOS of 4.3 days, therefore emergency department observation management is inappropriate 18,23 [ ]c) Painful condition/s in the elderly, have the highest rate of recidivism after emergency department observation management (10.8%) 20,21,22 [ ]d) Elevated cardiac biomarker requires intensive and exhaustive care (19) [ ]IX. General contraindications and/or Inappropriate clinical situations for Observational Care in patients with Chest Pain, when ANY ONE of the following is required: [ ]a) Prediction of prolongation of LOS based on ANY ONE of the following may be considered as a contraindication for observational care 2, 3, 4, 5, 6, 7, 8, 9, 10, 11 [ ]i) Age > 65 yrs. [ ]ii) Patient arriving by ambulance [ ]iii) Patient with high acuity [ ]iv) Patient requiring vital sign monitoring [ ]v) Patient on IV medication [ ]b) Systolic blood pressures 180mmHg 3,12 [ ]c) Patient with altered mental status including delirium and other alteration of consciousness, (3) [ ]d) Patient whose discharge disposition will be to a halfway home or rehabilitation home should not be managed in Emergency Department Observation Unit. CMS rule requires 3 days hospital stay before such placement. 3,13 [ ]e) Patient with failure to thrive due to broad array of etiologies 3,16,17 [ ]f) Inability to ambulate 3,14 Extended stay beyond goal length of stay may be needed for (1)(28): [ ]a) Specific condition diagnosed after evaluation (eg, pulmonary embolism, aortic dissection) [ ]b) Unstable angina [ ]c) Continued suspicion of acute coronary syndrome with inability to complete needed cardiac evaluation (eg, patient clinically unable to undergo stress testing) [ ]d) Myocardial infarction (Contents from ANGINA and CHEST PAIN clinical indications for admission to inpatient care have been integrated in this form) The original [facility] content created by [employer] has been revised. The portions of the content which have been revised are identified through the use of italic text or in bold, and [facility] [employer] has neither reviewed nor approved the modified material. All other unmodified content is copyright [facility]. Please see references footnoted in the original [facility] edition 2016 Admission Criteria Met: Yes
[2017-03-24] MEDS: PLAVIX PO SCH (10:01)
[2017-03-24] MEDS: LOPRESSOR PO SCH ×2 (10:01→21:23)
[2017-03-24] MEDS: BABY ASPIRIN PO SCH (10:01)
[2017-03-24] MEDS: FOLVITE PO SCH (10:01)
[2017-03-24] MEDS: LOVENOX SUB-Q SCH ×2 (10:16→21:23)
--- NOTE | 2017-03-24 10:22 | Progress Note ---
Assessment and Plan It is of concern that he develops an acute non-STEMI again within a month of his recent [place] in the absence of obstructive CAD. At this point, coronary angiography will be scheduled for tomorrow to reassess his disease. - Patient Problems (1) Acute non-ST elevation myocardial infarction (NSTEMI) Current Visit: Yes Status: Acute (2) CAD (coronary artery disease) Current Visit: Yes Status: Chronic Qualifiers: Coronary Disease-Associated Artery/Lesion type: jena artery [place] vs. transplanted heart: N Associated angina: A Subjective Date of service: 03/24/17 Principal diagnosis: Acute NSTEMI, CAD Interval history: No complaint today. Objective Vital Signs Last Vital Signs Temp 98.7 F 03/24/17 09:52 Pulse 61 03/24/17 10:01 Resp 16 03/24/17 09:52 BP 123/76 03/24/17 10:01 Pulse Ox 98 03/24/17 09:52 - Physical Examination General: Appears Well, No Apparent Distress HEENT: Positive: Normocephaly, Mucus Membranes Moist Neck: Positive: neck supple, trachea midline. Negative: JVD/HJR Cardiac: Positive: Reg Rate and Rhythm, S1/S2 Lungs: Positive: clear to auscultation Neuro: Positive: Grossly Intact Abdomen: Positive: Soft, Active Bowel Sounds. Negative: Tender Skin: Positive: Clear. Negative: Rash Musculoskeletal: Normal Range of Motion Extremities: Present: normal. Absent: edema - Labs and Meds Comprehensive Metabolic Panel 03/24/17 Range/Units 04:29 Sodium 138 (137-145) mmol/L Potassium 4.4 D (3.6-5.0) mmol/L Chloride 102.4 (98-107) mmol/L Carbon Dioxide 26 (22-30) mmol/L BUN 7 L (9-20) mg/dL Creatinine 1.0 (0.8-1.5) mg/dL Glucose 100 (75-100) mg/dL Calcium 8.5 (8.4-10.2) mg/dL - Imaging and Cardiology EKG: report reviewed - EKG Sinus rhythms and dysrhythmias: sinus rhythm Repolarization changes or abnormalities: nonspecific abnormality, ST segment, and/or T wave
[2017-03-24] MEDS ORDERED: NACL 0.9% 500 ML 500 ML IV SCH (11:00)
--- NOTE | 2017-03-24 13:30 | Progress Note ---
Assessment and Plan Assessment and plan: NSTEMI CAD HLD Tobacco use - cardiology was consulted and recommend to repeat cardiac cath tomorrow - Patient didn't take any of his meds after discharge - We started on appropriate medications for non-STEMI - We'll continue to monitor - Counsell cessation of smoking - Bookkeepers Supervisor about medication adherence DVT prophylaxis on therapeutic Lovenox disposition - will have cardiac cath tomorrow History Interval history: Patient was seen and evaluated this morning, currently patient denies any chest pain, the last episode was around 7:30 yesterday morning. Patient has been admitted a month ago for non-STEMI and cardiac workup was done. Hospitalist Physical - Physical exam Narrative exam: Not in cardiopulmonary distress. The patient is obese. Vital signs as documented. Head exam is unremarkable. No scleral icterus . Neck is without jugular venous distension, thyromegaly, or carotid bruits. Lungs are clear to auscultation. Cardiac exam reveals regular rate and Rhythm. First and second heart sounds normal. No murmurs, rubs or gallops. Abdominal exam reveals healed midline surgical scar. Extremities are nonedematous and both femoral and pedal pulses are normal. PRINT OPERATOR: Alert and oriented 3. - Constitutional Vitals: Temp Pulse Resp BP Pulse Ox 98.7 F 61 16 123/76 98 03/24/17 09:52 03/24/17 10:01 03/24/17 09:52 03/24/17 10:01 03/24/17 09:52 General appearance: Present: obese Results - Labs CBC & Chem 7: 03/22/17 03:25 03/24/17 04:29 Labs: Laboratory Last Values WBC 4.4 K/mm3 (4.5-11.0) L 03/22/17 03:25 RBC 3.94 M/mm3 (3.65-5.03) 03/22/17 03:25 Hgb 12.2 gm/dl (11.8-15.2) 03/22/17 03:25 Hct 36.6 % (35.5-45.6) 03/22/17 03:25 MCV 93 fl (84-94) 03/22/17 03:25 MCH 31 pg (28-32) 03/22/17 03:25 MCHC 33 % (32-34) 03/22/17 03:25 RDW 14.9 % (13.2-15.2) 03/22/17 03:25 Plt Count 213 K/mm3 (140-440) 03/22/17 03:25 [place] % (Auto) Casino Runner 03/22/17 03:25 Add Manual Diff Complete 03/22/17 03:25 Total Counted 100 03/22/17 03:25 Seg Neuts % (Manual) 59.0 % (40.0-70.0) 03/22/17 03:25 Band Neutrophils % 0 % 03/22/17 03:25 Lymphocytes % (Manual) 27.0 % (13.4-35.0) 03/22/17 03:25 Reactive Lymphs % (Man) 1.0 % 03/22/17 03:25 Monocytes % (Manual) 13.0 % (0.0-7.3) H 03/22/17 03:25 Eosinophils % (Manual) 0 % (0.0-4.3) 03/22/17 03:25 Basophils % (Manual) 0 % (0.0-1.8) 03/22/17 03:25 Metamyelocytes % 0 % 03/22/17 03:25 Myelocytes % 0 % 03/22/17 03:25 Promyelocytes % 0 % 03/22/17 03:25 Blast Cells % 0 % 03/22/17 03:25 Nucleated RBC % Not Reportable 03/22/17 03:25 Seg Neutrophils # Man 2.6 K/mm3 (1.8-7.7) 03/22/17 03:25 Band Neutrophils # 0.0 K/mm3 03/22/17 03:25 Lymphocytes # (Manual) 1.2 K/mm3 (1.2-5.4) 03/22/17 03:25 Abs React Lymphs (Man) 0.0 K/mm3 03/22/17 03:25 Monocytes # (Manual) 0.6 K/mm3 (0.0-0.8) 03/22/17 03:25 Eosinophils # (Manual) 0.0 K/mm3 (0.0-0.4) 03/22/17 03:25 Basophils # (Manual) 0.0 K/mm3 (0.0-0.1) 03/22/17 03:25 Metamyelocytes # 0.0 K/mm3 03/22/17 03:25 Myelocytes # 0.0 K/mm3 03/22/17 03:25 Promyelocytes # 0.0 K/mm3 03/22/17 03:25 Blast Cells # 0.0 K/mm3 03/22/17 03:25 WBC Morphology Not Reportable 03/22/17 03:25 Hypersegmented Neuts Not Reportable 03/22/17 03:25 Hyposegmented Neuts Not Reportable 03/22/17 03:25 Hypogranular Neuts Not Reportable 03/22/17 03:25 Smudge Cells Not Reportable 03/22/17 03:25 Toxic Granulation Not Reportable 03/22/17 03:25 Toxic Vacuolation Not Reportable 03/22/17 03:25 Dohle Bodies Not Reportable 03/22/17 03:25 Pelger-Huet Anomaly Not Reportable 03/22/17 03:25 Zainab Rods Not Reportable 03/22/17 03:25 Platelet Estimate Appears normal 03/22/17 03:25 Clumped Platelets Not Reportable 03/22/17 03:25 Plt Clumps, EDTA Not Reportable 03/22/17 03:25 Large Platelets Not Reportable 03/22/17 03:25 Giant Platelets Not Reportable 03/22/17 03:25 Platelet Satelliting Not Reportable 03/22/17 03:25 Plt Morphology Comment Not Reportable 03/22/17 03:25 RBC Morphology Normal 03/22/17 03:25 Dimorphic RBCs Not Reportable 03/22/17 03:25 Polychromasia Not Reportable 03/22/17 03:25 Hypochromasia Not Reportable 03/22/17 03:25 Poikilocytosis Not Reportable 03/22/17 03:25 Anisocytosis Not Reportable 03/22/17 03:25 Microcytosis Not Reportable 03/22/17 03:25 Macrocytosis Not Reportable 03/22/17 03:25 Spherocytes Not Reportable 03/22/17 03:25 Pappenheimer Bodies Not Reportable 03/22/17 03:25 Sickle Cells Not Reportable 03/22/17 03:25 Target Cells Not Reportable 03/22/17 03:25 Tear Drop Cells Not Reportable 03/22/17 03:25 Ovalocytes Not Reportable 03/22/17 03:25 Helmet Cells Not Reportable 03/22/17 03:25 Booth-[place] Bodies Not Reportable 03/22/17 03:25 [place] Rings Not Reportable 03/22/17 03:25 Vaibhav Cells Not Reportable 03/22/17 03:25 Bite Cells Not Reportable 03/22/17 03:25 Crenated Cell Not Reportable 03/22/17 03:25 Elliptocytes Not Reportable 03/22/17 03:25 Acanthocytes (Spur) Not Reportable 03/22/17 03:25 Rouleaux Not Reportable 03/22/17 03:25 Hemoglobin C Crystals Not Reportable 03/22/17 03:25 Schistocytes Not Reportable 03/22/17 03:25 Malaria parasites Not Reportable 03/22/17 03:25 Keven Bodies Not Reportable 03/22/17 03:25 Hem Pathologist Commnt No 03/22/17 03:25 PT 13.2 Sec. (12.2-14.9) 03/22/17 03:25 INR 1.01 (0.87-1.13) 03/22/17 03:25 APTT 29.9 Sec. (24.2-36.6) 03/22/17 03:25 Sodium 138 mmol/L (137-145) 03/24/17 04:29 Potassium 4.4 mmol/L (3.6-5.0) D 03/24/17 04:29 Chloride 102.4 mmol/L (98-107) 03/24/17 04:29 Carbon Dioxide 26 mmol/L (22-30) 03/24/17 04:29 Anion Gap 14 mmol/L 03/24/17 04:29 BUN 7 mg/dL (9-20) L 03/24/17 04:29 Creatinine 1.0 mg/dL (0.8-1.5) 03/24/17 04:29 Estimated GFR > 60 ml/min 03/24/17 04:29 BUN/Creatinine Ratio 7.00 % 03/24/17 04:29 Glucose 100 mg/dL (75-100) 03/24/17 04:29 Calcium 8.5 mg/dL (8.4-10.2) 03/24/17 04:29 Total Creatine Kinase 182 units/L (55-170) H 03/22/17 19:07 CK-MB (CK-2) 20.3 ng/mL (0.0-4.0) H 03/22/17 19:07 CK-MB (CK-2) Rel Index 11.1 (0-4) H 03/22/17 19:07 Troponin T 0.255 ng/mL (0.00-0.029) H* D 03/22/17 19:07 Triglycerides 53 mg/dL (2-149) 03/22/17 09:36 Cholesterol 295 mg/dL (50-199) H 03/22/17 09:36 LDL Cholesterol Direct 197 mg/dL (50-130) H 03/22/17 09:36 HDL Cholesterol 88 mg/dL (40-59) H 03/22/17 09:36 Cholesterol/HDL Ratio 3.35 % 03/22/17 09:36
[2017-03-25 05:41] LABS: Hematocrit 37.5 % (35.5-45.6); Hemoglobin 12.5 gm/dl (11.8-15.2); Mean Corpuscular HGB Conc 33 % (32-34); Mean Corpuscular Hemoglobin 31 pg (28-32); Mean Corpuscular Volume 93 fl (84-94); Platelet Count 188 K/mm3 (140-440); Red Blood Count 4.02 M/mm3 (3.65-5.03); Red Cell Distribution Width 15.1 % (13.2-15.2); White Blood Count 4.3 K/mm3 (4.5-11.0)
[2017-03-25 05:49] LABS: INR 1.01 (0.87-1.13)
[2017-03-25 05:50] LABS: Anion Gap 14 mmol/L; BUN/Creatinine Ratio 11.11; Blood Urea Nitrogen 10 mg/dL (9-20); Calcium 8.7 mg/dL (8.4-10.2); Carbon Dioxide 27 mmol/L (22-30); Glucose 94 mg/dL (75-100); Partial Thromboplastin Time 30.3 Sec. (24.2-36.6); Sodium 139 mmol/L (137-145)
[2017-03-25 06:40] LABS: Anisocytosis 1+; Blastocytes % (Manual) 0 %; Diff Status Complete; Platelet Estimate Consistent w Auto
--- NOTE | 2017-03-25 10:03 | Discharge Summary ---
Providers - Providers Date of Admission: 03/22/17 12:47 Date of discharge: 03/25/17 Attending physician: FLORENCIA BROWNING 03/22/17 Consult to Cardiac Rehabilitation [CONS] Routine Reason For Exam: Phase I Primary care physician: CONCRETE FORM SETTER AND FINISHER Hospitalization Condition: Fair Hospital course: Patient is 51 yo with history of hypertension, coronary artery disease s/p acute TN about 1 month ago. He presented with chest pain. Initial Troponin was normal. He was given Aspirin, Plavix, Metoprolol, Statin and admitted to r/o acute coronary syndrome. Cardiology was consulted. His Troponin levels increased , and he was diagnosed with acute NSTEMI. Patient was evaluated by care technician and cardiac cath planned. however, patient refused cardiac cath. He was therefore discharged home on Aspirin, Plavix, Metoprolol, Imdur and Lipitor. He is to follow with his PCP at [facility] and care technician with [facility]. He is advised that no strenous activity until cleared by Physician. Total time spent on discharge, 35 mins. Disposition: DISCHARGED TO HOME OR SELFCARE - Discharge Diagnoses (1) Acute non-ST elevation myocardial infarction (NSTEMI) Status: Acute (2) Hypertension Status: Chronic Qualifiers: Hypertension type: essential hypertension Qualified Code(s): I10 - Essential (primary) hypertension (3) Obesity (BMI 30.0-34.9) Status: Chronic (4) Noncompliance with medication regimen Status: Acute (5) FREYA (obstructive sleep apnea) Status: Chronic (6) CAD (coronary artery disease) Status: Chronic Qualifiers: Coronary Disease-Associated Artery/Lesion type: [place] artery [place] vs. transplanted heart: N Associated angina: A Core Measure Documentation - Palliative Care Palliative Care/ Comfort Measures: Not Applicable - Core Measures Any of the following diagnoses?: acute TN - Acute TN Discharge Requirements Aspirin at discharge: Yes LUCIA/ARB for LVSD if EF <40%: Not Applicable Beta suma at discharge: Yes Statin for LDL = or >100 mg/dl on DC: Yes Exam - Constitutional Vitals: Temp Pulse Resp BP Pulse Ox 98.1 F 51 L 18 140/82 98 03/25/17 07:30 03/25/17 07:30 03/25/17 07:30 03/25/17 07:30 03/25/17 07:30 General appearance: Present: no acute distress - EENT ENT: hearing intact - Neck Neck: Present: supple - Respiratory Respiratory: bilateral: CTA - Cardiovascular Heart Sounds: Present: S1 & S2 - Extremities Extremities: No edema - Abdominal General gastrointestinal: Present: soft - Neurologic Neurologic: moves all extremities, other (AAO x 3) Plan Diet: low fat, low cholesterol, low salt Additional Instructions: 1.Follow PCP at [facility] in 1 week. 2.Follow with cardiology at [facility] in 1 week. 3.No strenous activity until cleared by Physician Follow up with: PRIMARY CARE, [Primary Care Provider] - 3-5 Days Prescriptions: Aspirin [Aspirin BABY CHEW TAB] 81 mg PO QDAY #30 tab.chew AtorvaSTATin [Lipitor] 80 mg PO QHS #60 tablet Clopidogrel [Plavix] 75 mg PO QDAY #30 tablet ISOSORBIDE MONOnitrate [Imdur ER] 30 mg PO DAILY #30 tab.er.24h Metoprolol [Lopressor TAB] 25 mg PO BID #60 tablet
[2017-03-25] MEDS: LOPRESSOR PO SCH (10:20)
[2017-03-25] MEDS: BABY ASPIRIN PO SCH (10:20)
[2017-03-25] MEDS: FOLVITE PO SCH (10:20)
[2017-03-25] MEDS: PLAVIX PO SCH (10:20)
--- NOTE | 2017-03-25 12:34 | Progress Note ---
Assessment and Plan Add oral nitrates to his regimen. He may be discharged from a cardiac standpoint as he desires. - Patient Problems (1) Acute non-ST elevation myocardial infarction (NSTEMI) Current Visit: Yes Status: Acute (2) CAD (coronary artery disease) Current Visit: Yes Status: Chronic Qualifiers: Coronary Disease-Associated Artery/Lesion type: [place] artery [place] vs. transplanted heart: N Associated angina: A Subjective Date of service: 03/25/17 Principal diagnosis: Acute NSTEMI, CAD Interval history: No chest pain this morning. Yesterday, he had agreed to coronary angiography scheduled for this morning. However, at this time, he declines vehemently. I have explained to him that based on his positive cardiac enzymes of unexplained etiology, it will be prudent to perform coronary angiography at this time. Despite spending a while explaining the benefits to him, he insists on going home today. He claims that he plans to follow-up at the [facility]. He understands the potential risk of ischemic complications if he leaves the hospital without completing evaluation. Objective Vital Signs Temp Pulse Pulse Pulse Resp BP BP 03/25/17 10:20 54 L 140/82 03/25/17 07:30 98.1 F 51 L 18 140/82 03/25/17 05:25 98.4 F 61 20 146/83 03/24/17 22:34 92 H 20 03/24/17 21:00 98.7 F 68 20 134/84 03/24/17 20:10 62 03/24/17 15:00 97.6 F 58 L 16 137/66 Pulse Ox 03/25/17 10:20 03/25/17 07:30 98 03/25/17 05:25 99 03/24/17 22:34 98 03/24/17 21:00 99 03/24/17 20:10 03/24/17 15:00 - Physical Examination General: No Apparent Distress HEENT: Positive: EOMI, Normocephaly, Mucus Membranes Moist Neck: Positive: neck supple, trachea midline. Negative: JVD/HJR Cardiac: Positive: Reg Rate and Rhythm, S1/S2 Lungs: Positive: clear to auscultation Neuro: Positive: Grossly Intact Abdomen: Positive: Soft, Active Bowel Sounds. Negative: Tender Skin: Positive: Clear. Negative: Rash Musculoskeletal: Normal Range of Motion Extremities: Present: normal. Absent: edema - Labs and Meds Coagulation 03/25/17 Range/Units 04:47 PT 13.2 (12.2-14.9) Sec. INR 1.01 (0.87-1.13) APTT 30.3 (24.2-36.6) Sec. CBC 03/25/17 Range/Units 04:47 WBC 4.3 L (4.5-11.0) K/mm3 RBC 4.02 (3.65-5.03) M/mm3 Hgb 12.5 (11.8-15.2) gm/dl Hct 37.5 (35.5-45.6) % Plt Count 188 (140-440) K/mm3 Comprehensive Metabolic Panel 03/25/17 Range/Units 04:47 Sodium 139 (137-145) mmol/L Potassium 4.0 (3.6-5.0) mmol/L Chloride 102.0 (98-107) mmol/L Carbon Dioxide 27 (22-30) mmol/L BUN 10 (9-20) mg/dL Creatinine 0.9 (0.8-1.5) mg/dL Glucose 94 (75-100) mg/dL Calcium 8.7 (8.4-10.2) mg/dL - Imaging and Cardiology EKG: report reviewed - Telemetry EKG Rhythm: Sinus Rhythm - EKG Sinus rhythms and dysrhythmias: sinus rhythm Repolarization changes or abnormalities: nonspecific abnormality, ST segment, and/or T wave
[2017-03-25 12:42] VITALS: BP 125/72
[2017-03-25] MEDS ORDERED: IMDUR PO SCH (13:00)
== END 2017-03-25 14:00 | disposition home or self-care (01) | DRG 282 ==
LOC: ED 03:06 → 4A 12:47
PROVIDERS: ADMIT Internal Medicine; ATTEND Internal Medicine
DX: I21.4 Non-ST elevation (NSTEMI) myocardial infarction (principal); I10 Essential (primary) hypertension; I25.10 Atherosclerotic heart disease of native coronary artery without angina pectoris; G47.33 Obstructive sleep apnea (adult) (pediatric); E88.81 Metabolic syndrome and other insulin resistance; E78.5 Hyperlipidemia, unspecified; M19.90 Unspecified osteoarthritis, unspecified site; F32.9 Major depressive disorder, single episode, unspecified; E66.9 Obesity, unspecified; F17.210 Nicotine dependence, cigarettes, uncomplicated; E87.6 Hypokalemia; Z82.49 Family history of ischemic heart disease and other diseases of the circulatory system; Z83.3 Family history of diabetes mellitus; Z68.30 Body mass index [BMI] 30.0-30.9, adult; Z91.14 Patient's other noncompliance with medication regimen; Z91.010 Allergy to peanuts; Z79.82 Long term (current) use of aspirin; F10.10 Alcohol abuse, uncomplicated; Z71.6 Tobacco abuse counseling; Z71.89 Other specified counseling; Z53.29 Procedure and treatment not carried out because of patient's decision for other reasons; Z68.31 Body mass index [BMI] 31.0-31.9, adult
CPT/HCPCS: 36415; 80048; 80061; 82550; 82553; 82962; 84484; 85007; 85025; 85610; 85730; 93005; 93010; 94660; 99406; A9270-GY; J1650

== ENCOUNTER 2017-08-25 03:20 | Emergency (ER) | payer OTHER ==
[2017-08-25 03:59] LABS: Basophils % (Auto) 0.8 % (0.0-1.8); Eosinophils % (Auto) 1.9 % (0.0-4.3); Hemoglobin 11.6 gm/dl (11.8-15.2); Mean Corpuscular HGB Conc 33 % (32-34); Mean Corpuscular Hemoglobin 28 pg (28-32); Mean Corpuscular Volume 83 fl (84-94); Platelet Count 255 K/mm3 (140-440); Red Blood Count 4.22 M/mm3 (3.65-5.03); Red Cell Distribution Width 17.2 % (13.2-15.2); White Blood Count 4.1 K/mm3 (4.5-11.0)
[2017-08-25 04:22] LABS: Anion Gap 19 mmol/L; BUN/Creatinine Ratio 11; Blood Urea Nitrogen 8 mg/dL (9-20); Calcium 8.3 mg/dL (8.4-10.2); Carbon Dioxide 21 mmol/L (22-30); Chloride 105.1 mmol/L (98-107); Glucose 94 mg/dL (75-100); Potassium 4.2 mmol/L (3.6-5.0); Sodium 141 mmol/L (137-145)
[2017-08-25] MEDS ORDERED: MORPHINE IV ONE (06:42)
--- NOTE | 2017-08-25 07:09 | Emergency Department Report ---
ED General Adult HPI - General Chief complaint: Chest Pain Stated complaint: CHEST PAIN Time Seen by Provider: 08/25/17 06:09 Source: patient Mode of arrival: Ambulatory Limitations: No Limitations - History of Present Illness Initial comments: Patient is a 52-year-old male past medical history of coronary artery disease, hypertension who presents with chest pain that has been going on for the last 2 months. Patient states chest pain is constant is mild is a 5 out 10 nothing makes it better or worse. Patient states that he is not on any Plavix or aspirin due to risk of bleeding. Patient states that he was admitted previously last month for his chest pain however he says "the doctors didn't find anything wrong." Patient states that there are no new changes with this chest pain he just came in here just to see "how it was going on." It is an achy type of pain it does not radiate. Severity scale (0 -10): 9 - Related Data Previous Rx's Medication Instructions Recorded Last Taken Type Aspirin [Aspirin BABY CHEW TAB] 81 mg PO QDAY #30 tab.chew 03/25/17 Unknown Rx AtorvaSTATin [Lipitor] 80 mg PO QHS #60 tablet 03/25/17 Unknown Rx Clopidogrel [Plavix] 75 mg PO QDAY #30 tablet 03/25/17 Unknown Rx ISOSORBIDE MONOnitrate [Imdur ER] 30 mg PO DAILY #30 tab.er.24h 03/25/17 Unknown Rx Metoprolol [Lopressor TAB] 25 mg PO BID #60 tablet 03/25/17 Unknown Rx Allergies Allergy/AdvReac Type Severity Reaction Status Date / Time peanut AdvReac Severe Swelling Verified 02/22/17 07:28 ED Review of Systems ROS: Stated complaint: CHEST PAIN Other details as noted in HPI Constitutional: denies: chills, fever Eyes: denies: eye pain, eye discharge, vision change ENT: denies: ear pain, throat pain Respiratory: denies: cough, shortness of breath, wheezing Cardiovascular: chest pain. denies: palpitations Endocrine: no symptoms reported Gastrointestinal: denies: abdominal pain, nausea, diarrhea Genitourinary: denies: urgency, dysuria Musculoskeletal: denies: back pain, joint swelling, arthralgia Skin: denies: rash, lesions Neurological: denies: headache, weakness, paresthesias Psychiatric: denies: anxiety, depression Hematological/Lymphatic: denies: easy bleeding, easy bruising ED Past Medical Hx - Past Medical History Previous Medical History?: Yes Hx Hypertension: No Hx CVA: No Hx Heart Attack/AMI: No Hx Congestive Heart Failure: No Hx Diabetes: No Hx Deep Vein Thrombosis: No Hx Pulmonary Embolism: No Hx GERD: No Hx Liver Disease: No Hx Renal Disease: No Hx Sickle Cell Disease: No Hx Arthritis: Yes Hx Headaches / Migraines: No Hx Seizures: No Hx Psychiatric Treatment: Yes (depression) Hx Asthma: No Hx COPD: No Hx Tuberculosis: No Hx Dementia: No Hx HIV: No Additional medical history: high cholestrol. sleep apnea - cpap - Surgical History Past Surgical History?: Yes Hx Coronary Stent: No Hx Open Heart Surgery: No Hx Pacemaker: No Hx Internal Defibrillator: No Hx Cholecystectomy: No Hx Appendectomy: No Hx Breast Surgery: No Additional Surgical History: hernia repair. bowel obstruction (status post bowel resection for gangrene on 02/04/[address] Osorio) - Social History Smoking Status: Current Every Day Smoker Substance Use Type: Alcohol - Medications Home Medications: Home Medications Medication Instructions Recorded Confirmed Last Taken Type Aspirin [Aspirin BABY CHEW TAB] 81 mg PO QDAY #30 tab.chew 03/25/17 Unknown Rx AtorvaSTATin [Lipitor] 80 mg PO QHS #60 tablet 03/25/17 Unknown Rx Clopidogrel [Plavix] 75 mg PO QDAY #30 tablet 03/25/17 Unknown Rx ISOSORBIDE MONOnitrate [Imdur ER] 30 mg PO DAILY #30 tab.er.24h 03/25/17 Unknown Rx Metoprolol [Lopressor TAB] 25 mg PO BID #60 tablet 03/25/17 Unknown Rx ED Physical Exam - General Limitations: No Limitations General appearance: alert, in no apparent distress - Head Head exam: Present: atraumatic, normocephalic - Eye Eye exam: Present: normal appearance - ENT ENT exam: Present: mucous membranes moist - Neck Neck exam: Present: normal inspection - Respiratory Respiratory exam: Present: normal lung sounds bilaterally, chest wall tenderness. Absent: respiratory distress - Cardiovascular Cardiovascular Exam: Present: regular rate, normal rhythm. Absent: systolic murmur, diastolic murmur, rubs, gallop - GI/Abdominal GI/Abdominal exam: Present: soft, normal bowel sounds - Rectal Rectal exam: Present: deferred - Extremities Exam Extremities exam: Present: normal inspection - Back Exam Back exam: Present: normal inspection - Neurological Exam Neurological exam: Present: alert, oriented X3 - Psychiatric Psychiatric exam: Present: normal affect, normal mood - Skin Skin exam: Present: warm, dry, intact, normal color. Absent: rash ED Course Vital Signs 08/25/17 08/25/17 08/25/17 03:26 03:56 05:00 Temperature 98.8 F 98.2 F Pulse Rate 82 88 78 Respiratory 14 16 Rate Blood Pressure 169/98 121/52 Blood Pressure 155/86 [Left] O2 Sat by Pulse 98 100 99 Oximetry 08/25/17 08/25/17 06:00 07:00 Temperature Pulse Rate 83 86 Respiratory 24 20 Rate Blood Pressure 121/52 116/69 Blood Pressure [Left] O2 Sat by Pulse 97 93 Oximetry ED Medical Decision Making - Lab Data Result diagrams: 08/25/17 03:41 08/25/17 03:41 - EKG Data -: EKG Interpreted by Ms - EKG Data 08/25/17 07:10 EKG shows normal sinus rhythm Q waves in leads 2,3 and aVF normal axis no T- wave inversion no ST segment elevation. - Medical Decision Making Chief medical diagnosis: Non-STEMI Differential medical diagnosis: GERD, stable angina, metabolic abnormality CBC, CMP, EKG, IV pain medication, troponin Patient's troponin is negative patient states history states that he has had no new chest pain going on for the last 2 months. Due to this I will send patient home. Patient also refused second troponin blood draw. Engaged and shared decision making patient states that he does not want to be admitted. I will refer patient to foot setter. He states he cannot take aspirin or Plavix. And that he was admitted one month ago for chest pain. Due to patient having low risk for negative cardiac workup one month ago even though he has history of coronary artery disease. Patient agrees to plan an additional verbal discharge instructions were given and return precautions were given to him. Critical care attestation.: If time is entered above; I have spent that time in minutes in the direct care of this critically ill patient, excluding procedure time. ED Disposition Clinical Impression: Chest pain Qualifiers: Chest pain type: other chest pain Qualified Code(s): R07.89 - Other chest pain ; R07.8 - Other chest pain Hypertension Qualifiers: Hypertension type: unspecified Qualified Code(s): I10 - Essential (primary) hypertension Disposition: - TO HOME OR SELFCARE Is pt being admited?: No Does the pt Need Aspirin: No Condition: Stable Instructions: Chest Pain (ED), Hypertension (ED) Referrals: PRETTY GUTIERREZ MD [Staff Physician] - 3-5 Days FLORENCIA BROWN MD [Staff Physician] - 3-5 Days
[2017-08-25 07:27] VITALS: BP 116/69
== END 2017-08-25 07:48 | disposition home or self-care (01) ==
LOC: ED 03:20
DX: R07.89 Other chest pain (principal); I10 Essential (primary) hypertension; F32.9 Major depressive disorder, single episode, unspecified; E78.00 Pure hypercholesterolemia, unspecified; Z79.82 Long term (current) use of aspirin; Z91.010 Allergy to peanuts
CPT/HCPCS: 36415; 80048; 84484; 85025; 93005; 93010; 96374; 99284; J2270